=== PATIENT | male | born 1995 | race Two or more races ===

== ENCOUNTER 2024-09-13 20:50 | Inpatient (IN) | payer MEDICAID, OTHER ==
[~2024-09-13] VITALS: Ht 172.7 cm; Wt 94.5 kg
[2024-09-13] MEDS: CEFEPIME 2GM/50ML NS 50 ML IV ONE (01:10)
[2024-09-13] MEDS ORDERED: VANCOMYCIN 1GM/250ML KIT 200 ML IV ONE (21:15)
--- NOTE | 2024-09-13 21:30 | ED.PDOC ---
Musculoskeletal HPI Comments 29-year-old male came to ER due to nonhealing wound, right great toe. Patient has history of type 2 diabetes, states for the past 2 days he has a nonhealing wound of the right great toe. Denies any history of trauma. Chief Complaint: Lower Extremity Time Seen by MD: 21:29 Reviewed Notes: Nurses Notes Allergies: Coded Allergies: NO KNOWN ALLERGIES (Unverified , 09/13/24) Information Source: Patient Mode of Arrival: Wheelchair Location: Right Extremity Location: Great Toe Timing: Days Prehospital treatment: None Severity: Moderate Able to Move Extremity: Yes Bear Weight: Limited Pain: Moderate Hand Dominance: Right Mechanism: Spontaneous Circumstances: Spontaneous Onset of Symptoms: Spontaneous Symptoms: Swelling, Pain Associated signs and symptoms: Foot pain (Right great toe) Past Medical History PAST MEDICAL HISTORY: DM Surgical History: Denies all surgeries Family History Family History: Reviewed,noncontributory to illness Social History Smoker: Non-Smoker Alcohol: Denies ETOH Use Drugs: Denies Drug Use Lives In: Home Constitutional: denies: chills, diaphoresis, fatigue, fever, malaise, sweats, weakness, others EENTM: denies: blurred vision, double vision, ear bleeding, ear discharge, ear drainage, ear pain, ear ringing, eye pain, eye redness, hearing loss, mouth pain, mouth swelling, nasal discharge, nose bleeding, nose congestion, nose pain, photophobia, tearing, throat pain, throat swelling, voice changes, others Respiratory: denies: cough, hemoptysis, orthopnea, SOB at rest, shortness of breath, SOB with excertion, stridor, wheezing, others Cardiovascular: denies: chest pain, dizzy spells, diaphoresis, Dyspnea on exert ion, edema, irregular heart beat, left arm pain, lightheadedness, palpitations, PND, syncope, others Gastrointestinal: denies: abdomen distended, abdominal pain, blood streaked bowels, constipated, diarrhea, dysphagia, difficulty swallowing, hematemesis, melena, nausea, poor appetite, poor fluid intake, rectal bleeding, rectal pain, vomiting, others Genitourinary: denies: burning, dysuria, flank pain, frequency, hematuria, incontinence, penile discharge, penile sore, pain, testicle pain, testicle swelling, urgency, others Neurological: denies: dizziness, fainting, headache, left sided numbness, left sided weakness, numbness, paresthesia, pre-existing deficit, right sided numbness, right sided weakness, seizure, speech problems, tingling, tremors, weakness, others Musculoskeletal: denies: back pain, gout, joint pain, joint swelling, muscle pain, muscle stiffness, neck pain, others Integumetry: reports: wounds (Nonhealing wound great toe, right); denies: bruises, change in color, change in hair/nails, dryness, laceration, lesions, lumps, rash, others Allergic/Immunocompromised: denies: Difficulty Healing, Frequent Infections, Hives, Itching, others Hematologic/Lymphatic: denies: anemia, blood clots, easy bleeding, easy bruising, swollen glands, others Endocrine: denies: excessive hunger, excessive sweating, excessive thirst, excessive urination, flushing, intolerance to cold, intolerance to heat, unexplained weight gain, unexplained weight loss, others Psychiatric: denies: anxiety, bipolar disorder, depression, hopeless, panic disorder, schizophrenia, sleepless, suicidal, others Physical Exam General Appearance: No Apparent Distress, Normal HEENT: Normal ENT Inspection, Pharynx Normal, TMs Normal Neck: Full Range of Motion, Non-Tender, Normal, Normal Inspection Respiratory: Chest Non-Tender, Lungs Clear, No Accessory Muscle Use, No Respiratory Distress, Normal Breath Sounds Cardiovascular: No Edema, No JVD, No Murmur, No Gallop, Normal Peripheral Pulses, Regular Rate/Rhythm Breast Exam: Deferred Gastrointestinal: No Organomegaly, Non Tender, No Pulsatile Mass, Normal Bowel Sounds, Soft Genitalia: Deferred Pelvic: Deferred Rectal: Deferred Extremities: No calf tenderness, Normal capillary refill, Normal range of motion, Non-tender, No pedal edema, Other (Nonhealing wound right great toe) Musculoskeletal : Apperance: Normal Neurologic: Alert, art history professor II-XII nml as Tested, No Motor Deficits, Normal Affect, Normal Mood, No Sensory Deficits Cerebellar Function: Normal Reflexes: Normal Skin: Dry, Normal Color, Warm Lymphatic: No Adenopathy Was a procedure done? Was a procedure done?: No Differential Diagnosis EXT Differential Diagnosis: Cellulitis, Septic, Other (Diabetic foot) X-Ray, Labs, Meds, VS Vital Signs Date Time Temp Pulse Resp B/P (MAP) Pulse Ox O2 Delivery O2 Flow Rate FiO2 09/13/24 21:05 99.7 118 18 138/78 (98) 97 Lab Test 09/13/24 21:32 Range/Units White Blood Count 13.7 H 4.4-10.8 10^3/uL Red Blood Count 5.28 4.5-5.90 10^6/uL Hemoglobin 14.4 13.5-17.5 g/dL Hematocrit 42.4 41.0-53.0 % Mean Corpuscular Volume 80.3 80.0-100.0 fL Mean Corpuscular Hemoglobin 27.2 L 28.0-32.0 pg Mean Corpuscular Hemoglobin Concent 33.8 32.0-36.0 g/dL Red Cell Distribution Width 13.8 11.8-14.3 % Platelet Count 280 140-450 10^3/uL Mean Platelet Volume 8.8 6.9-10.8 fL Neutrophils (%) (Auto) 75.2 37.0-80.0 % Lymphocytes (%) (Auto) 14.8 10.0-50.0 % Monocytes (%) (Auto) 8.3 0.0-12.0 % Eosinophils (%) (Auto) 1.5 0.0-7.0 % Basophils (%) (Auto) 0.2 0.0-2.0 % Neutrophils # (Auto) 10.3 H 1.6-8.6 10 ^3/uL Lymphocytes # (Auto) 2.0 0.4-5.4 10 ^3/uL Monocytes # (Auto) 1.1 0-1.3 10 ^3/uL Eosinophils # (Auto) 0.2 0-0.8 10 ^3/uL Basophils # (Auto) 0 0-0.2 10 ^3/uL Nucleated Red Blood Cells 0.0 % Sodium Level 133 L 136-145 mmol/L Potassium Level 3.9 3.5-5.1 mmol/L Chloride Level 96 L 98-107 mmol/L Carbon Dioxide Level 29 20-31 mmol/L Anion Gap 8 5-15 Blood Urea Nitrogen 6 L 9-23 mg/dL Creatinine 0.66 L 0.700-1.30 mg/dL Glomerular Filtration Rate Calc 130 >90 mL/min BUN/Creatinine Ratio 9.1 L 10.0-20.0 Serum Glucose 248 H 74-106 mg/dL Lactic Acid Level 1.6 0.4-2.0 mmol/L Calcium Level 9.7 8.7-10.4 mg/dL PROCEDURE(s): RFOOT - R FOOT 3 VIEW XRAY REASON: right 1st toe pain ORDER NUMBER(s): [id number], ACCESSION NUMBER(s): [id number] EXAMINATIONS: 3 views of the right foot CLINICAL HISTORY: right 1st toe pain COMPARISON: At the time of review, no prior studies are available for comparison. Findings and impression: Soft tissue gas within the plantar tissues of the 1st distal phalanx. Necrotizing infection not excluded. No obvious bony destructive changes are evident on the provided views. Time of 1ST Reevaluation: 21:24 Reevaluation 1ST: Unchanged Patient Education/Counseling: Diagnosis, Treatment Family Education/Counseling: No Family Present Departure 1 Departure Time of Disposition: 22:41 (Patient with necrotic infection of his toe. Patient is not septic. We will empirically cover patient with antibiotics with the patient for further workup) Impression: Primary Impression: Cellulitis Qualified Codes: L03.031 - Cellulitis of right toe Disposition: 09 ADMITTED INPATIENT Admit to: Med Surg Condition: Serious Critical Care Note Critical Care Time?: Yes Critical care comment: Concerning for gangrene Authorized and Performed by: Ricarda Mathew MD Total critical care time: Approximately 38 minutes Due to a high probability of clinically significant, life threatening deterioration, the patient required my highest level of preparedness to intervene emergently and I personally spent this critical care time directly and personally managing the patient. This critical care time included obtaining a history; examining the patient; pulse oximetry; ordering and review of studies; arranging urgent treatment with development of a management plan; evaluation of patient's response to treatment; frequent reassessment; and, discussions with other providers. This critical care time was performed to assess and manage the high probability of imminent, life-threatening deterioration that could result in multi-organ failure. It was exclusive of separately billable procedures and treating other patients and teaching time. Please see my other sections and the rest of the note for further information on patient assessment and treatment. Stability Stability form required: No Heart Score Heart Score: Heart Score Response (Comments) Value History N/A 0 EKG N/A 0 Age N/A 0 Risk Factors N/A 0 Troponin N/A 0 Total 0 I personally scribed for RICARDA MATHEW MD ([facility]) on 09/13/24 at 21:30. Electronically submitted by Andrea Thomson ([facility]). I personally scribed for RICARDA MATHEW MD ([facility]) on 09/13/24 at 21:40. Electronically submitted by Andrea Thomson ([facility]). RICARDA MATHEW MD Sep 13, 2024 21:30
--- NOTE | 2024-09-13 21:33 | DVH ---
EXAMINATIONS: 3 views of the right foot CLINICAL HISTORY: right 1st toe pain COMPARISON: At the time of review, no prior studies are available for comparison. Findings and impression: Soft tissue gas within the plantar tissues of the 1st distal phalanx. Necrotizing infection not exclu ded. No obvious bony destructive changes are evident on the provided views.
[2024-09-13 21:56] LABS: Basophils # (auto) 0 10 ^3/uL (0-0.2); Basophils % (auto) 0.2 % (0.0-2.0); Eosinophils # (auto) 0.2 10 ^3/uL (0-0.8); Eosinophils % (auto) 1.5 % (0.0-7.0); Hematocrit 42.4 % (41.0-53.0); Hemoglobin 14.4 g/dL (13.5-17.5); Lymphocytes % (auto) 14.8 % (10.0-50.0); Mean Corpuscular Hemoglobin 27.2 pg (28.0-32.0); Mean Corpuscular Hgb Conc. 33.8 g/dL (32.0-36.0); Mean Corpuscular Volume 80.3 fL (80.0-100.0); Monocytes # (auto) 1.1 10 ^3/uL (0-1.3); Monocytes % (auto) 8.3 % (0.0-12.0); Neutrophils # (auto) 10.3 10 ^3/uL (1.6-8.6); Neutrophils % (auto) 75.2 % (37.0-80.0); Platelet Count (auto) 280 10^3/uL (140-450); Red Blood Cells 5.28 10^6/uL (4.5-5.90); Red Cell Distribution Width 13.8 % (11.8-14.3); White Blood Cell 13.7 10^3/uL (4.4-10.8)
[2024-09-13 22:05] LABS: Potassium 3.9 mmol/L (3.5-5.1)
[2024-09-13 22:06] LABS: Anion Gap 8 (5-15); Carbon Dioxide 29 mmol/L (20-31)
[2024-09-13 22:07] LABS: Calcium 9.7 mg/dL (8.7-10.4)
[2024-09-13 22:11] LABS: BUN/Creatinine Ratio 9.1 (10.0-20.0)
[2024-09-13 22:15] LABS: Chloride 96 mmol/L (98-107); Sodium 133 mmol/L (136-145)
[2024-09-13 22:16] LABS: Blood Urea Nitrogen 6 mg/dL (9-23); Glucose 248 mg/dL (74-106)
[2024-09-13] MEDS ORDERED: DEXTROSE (50%) 50ML SYRG IV PRN (23:15)
[2024-09-13] MEDS ORDERED: VANCOMYCIN PER PHARMACY 0 MG IV SCH (23:15)
[2024-09-13] MEDS ORDERED: DOCUSATE SOD 100 MG CAP PO PRN (23:15)
[2024-09-13] MEDS ORDERED: NITROGLYCERIN 0.4 MG SL TAB SL PRN (23:15)
[2024-09-13] MEDS ORDERED: HYDROcodone-ACET 5/325MG TAB PO PRN (23:15)
[2024-09-13] MEDS ORDERED: ACETAMINOPHEN 325 MG TAB PO PRN (23:15)
[2024-09-13] MEDS ORDERED: MORPHINE SULFATE INJ 2 MG/ml SYRG IV PRN (23:15)
[2024-09-13] MEDS: SODIUM CHLORIDE 0.9% 1,000 ML IV ONE (23:40)
[2024-09-13] MEDS: ACETAMINOPHEN 325 MG TAB PO ONE (23:40)
[2024-09-13] MEDS: VANCOMYCIN 1GM/250mL NS or D5W KIT IV SCH (23:48)
[2024-09-13] MEDS: ONDANSETRON HCL 4 MG/2 ML VIAL IV PRN (23:49)
[2024-09-13] MEDS: MORPHINE SULFATE INJ 2 MG/ml SYRG IV PRN (23:50)
[2024-09-14] VITALS (8 sets, daily range): BP systolic 107–126; BP diastolic 65–78; PULSE 89–103; RESP 16–20; TEMP 98–99; O2SAT 96–100
[2024-09-14] MEDS: ACCU-CHEK COMFORT CURVE STRIP VI SCH (01:00)
[2024-09-14] MEDS: InsuLIN REG 1unit/0.01ml Soln (100units/ml) SC SCH (01:06)
[2024-09-14] MEDS ORDERED: METF-372 PO (01:26)
[2024-09-14] MEDS: SODIUM CHLORIDE 0.9% 1,000 ML IV SCH (01:34)
--- NOTE | 2024-09-14 02:43 | DVHHP2 ---
[facility] MANAGER 09/14/24 0243: History of Present Illness Reason for Visit: Right great toe Diabetic wound History of Present Illness 29-year-old male with past medical history of uncontrolled DM presents with complaints Swelling and Pain to the right great toe. Patient was first diagnosed with a diabetic wound On May 12, 2024 at [facility] ER. Patient was prescribed antibiotics (Doxycycline and Mupirocin ointment) at that time. Patient Confirmed he has tried to seek help for the wound. Also states it has just gotten worse. At this time there are no complaints of fevers, chills, shortness of breath, chest pain, abdominal pain, nausea, vomiting, Additional wounds. Endocrine: Diabetes Smoke: No ALCOHOL: none Drugs: None Lives: with Family Review of Systems Constitutional: No: Fever, Chills, Sweats, Weakness, Malaise, Other Eyes: No: Pain, Vision change, Conjunctivae inflammation, Eyelid inflammation, Other, Redness ENT: No: Ear pain, Ear discharge, Nose pain, Nose discharge, Nose congestion, Mouth pain, Mouth swelling, Throat pain, Throat swelling, Other Respiratory: No: Cough, Dry, Shortness of breath, SOB with excertion, Wheezing, Hemoptysis, Pleuritic Pain, Sputum, Wheezing, Other Cardiovascular: No: Chest Pain, Palpitations, Orthopnea, Paroxysmal Noc. Dyspnea, Edema, Lt Headedness, Other Gastrointestinal: No: Nausea, Vomiting, Abdominal Pain, Diarrhea, Constipation, Melena, Hematochezia, Other Genitourinary: No Dysuria, No Frequency, No Incontinence, No Hematuria, No Retention, No Other Musculoskeletal: foot pain Skin: Other (blackened skin to right great toe); No: Rash, Lesions, Jaundice, Bruising Neurological: No: Weakness, Numbness, Incoordination, Change in speech, Confusion, Seizures, Other Allergies: Coded Allergies: NO KNOWN ALLERGIES (Unverified , 09/13/24) Medications Current Medications Medications Dose Ordered Sig/Sammi Route Start Time Stop Time Status Last Admin Dose Admin Sodium Chloride 1,000 ml @ 100 mls/hr Q10H IV 09/13/24 23:15 09/14/24 01:34 100 MLS/HR Docusate Sodium 100 mg BIDPRN PRN PO 09/13/24 23:15 Acetaminophen 650 mg Q6HP PRN PO 09/13/24 23:15 Acetaminophen/ Hydrocodone Bitart 1 tab Q6HPRN PRN PO 09/13/24 23:15 Ondansetron HCl 4 mg Q4HP PRN IV 09/13/24 23:15 09/13/24 23:49 4 MG Morphine Sulfate 2 mg Q4HPRN PRN IV 09/13/24 23:15 09/13/24 23:50 2 MG Nitroglycerin 0.4 mg Q5MINP PRN SL 09/13/24 23:15 Morphine Sulfate 2 mg Q30M PRN IV 09/13/24 23:15 Diagnostic Test (Pha) 1 strip Q6HR 09/14/24 00:00 09/14/24 01:00 1 STRIP Insulin Human Regular Q6HR SC 09/14/24 00:00 09/14/24 01:06 6 UNITS Dextrose 50 ml UD PRN IV 09/13/24 23:15 Vancomycin HCl 0 ml @ 0 mls/hr UD IV 09/13/24 23:15 UNV Piperacillin Sod/ Tazobactam Sod 100 ml @ 100 mls/hr TID IV 09/14/24 06:00 Exam Vital Signs Vital Signs Date Time Temp Pulse Resp B/P (MAP) Pulse Ox O2 Delivery O2 Flow Rate FiO2 09/14/24 01:16 98.3 98 20 126/73 (90) 96 98.3 09/13/24 23:45 Room Air* 0 21 General Appearance: Alert, Oriented X3, Cooperative, moderate distress HEENT: Atraumatic, PERRLA, EOMI Respiratory: Clear to auscultation, Normal air movement Cardiovascular: Normal S1, Normal S2, Other (Sinus tachycardia) Abdominal: Normal bowel sounds, Soft, No tenderness Extremities: No clubbing, No cyanosis, Normal pulses, Other (Right great toe, Malodorous, Distal and lesion with necrotic tissue. darkened tissue to top of toe. Dark discoloration to toenail) Skin: No significant lesion (Right great toe, Malodorous, Distal and lesion with necrotic tissue. darkened tissue to top of toe. Dark discoloration to toenail) Neuro: Normal speech, Strength at 5/5 X4 ext, Normal tone, Sensation intact, Cranial nerves 3-12 NL Psych/Mental Status: Mental status NL, Mood NL Labs/Xrays Labs Test 09/14/24 01:00 09/13/24 21:32 Range/Units POC Glucose 279 H 70-106 mg/dl White Blood Count 13.7 H 4.4-10.8 10^3/uL Red Blood Count 5.28 4.5-5.90 10^6/uL Hemoglobin 14.4 13.5-17.5 g/dL Hematocrit 42.4 41.0-53.0 % Mean Corpuscular Volume 80.3 80.0-100.0 fL Mean Corpuscular Hemoglobin 27.2 L 28.0-32.0 pg Mean Corpuscular Hemoglobin Concent 33.8 32.0-36.0 g/dL Red Cell Distribution Width 13.8 11.8-14.3 % Platelet Count 280 140-450 10^3/uL Mean Platelet Volume 8.8 6.9-10.8 fL Neutrophils (%) (Auto) 75.2 37.0-80.0 % Lymphocytes (%) (Auto) 14.8 10.0-50.0 % Monocytes (%) (Auto) 8.3 0.0-12.0 % Eosinophils (%) (Auto) 1.5 0.0-7.0 % Basophils (%) (Auto) 0.2 0.0-2.0 % Neutrophils # (Auto) 10.3 H 1.6-8.6 10 ^3/uL Lymphocytes # (Auto) 2.0 0.4-5.4 10 ^3/uL Monocytes # (Auto) 1.1 0-1.3 10 ^3/uL Eosinophils # (Auto) 0.2 0-0.8 10 ^3/uL Basophils # (Auto) 0 0-0.2 10 ^3/uL Nucleated Red Blood Cells 0.0 % Sodium Level 133 L 136-145 mmol/L Potassium Level 3.9 3.5-5.1 mmol/L Chloride Level 96 L 98-107 mmol/L Carbon Dioxide Level 29 20-31 mmol/L Anion Gap 8 5-15 Blood Urea Nitrogen 6 L 9-23 mg/dL Creatinine 0.66 L 0.700-1.30 mg/dL Glomerular Filtration Rate Calc 130 >90 mL/min BUN/Creatinine Ratio 9.1 L 10.0-20.0 Serum Glucose 248 H 74-106 mg/dL Lactic Acid Level 1.6 0.4-2.0 mmol/L Calcium Level 9.7 8.7-10.4 mg/dL Assessment/Plan Assessment/Plan Diabetic wound right great toe Uncontrolled DM with hyperglycemia Plan Admit telemetry Podiatry consult per emergency department Infectious Disease consult. Wound culture pending. Blood cultures pending. Broad Spectrum IV ABX IVF NPO diet Blood glucose checks every six hours with regular insulin sliding scale coverage. GI ppx pepcid / DVT ppx lovenox Plan discussed with: Patient My Orders Orders - MARIE ORR NP Procedure Category Date Status Time Code Status CODE 09/13/24 Transmitted 23:06 Vital Signs ALEXIS 09/13/24 In Process 23:06 Review Orders With ALEXIS 09/13/24 In Process Adm. 23:06 Encourage Activity As ALEXIS 09/13/24 In Process Tolerate 23:06 Npo (Nothing By DIET 09/14/24 Transmitted Mouth) Diet Breakfast Sodium Chloride 0.9% PHA 09/13/24 In Process 23:15 Oxygen By Face Mask RT 09/13/24 Transmitted 23:06 Docusate Sodium PHA 09/13/24 In Process Capsule (Colace 23:15 Acetaminophen Tablet PHA 09/13/24 In Process (Tylenol Tablet) 23:15 Notify Of Changes ALEXIS 09/13/24 In Process From Base 23:06 Advance Directive ALEXIS 09/13/24 In Process 23:06 Basic Metabolic Panel LAB 09/14/24 Logged 05:00 Basic Metabolic Panel LAB 09/15/24 Verified 05:00 Basic Metabolic Panel LAB 09/16/24 Verified 05:00 Basic Metabolic Panel LAB 09/17/24 Verified 05:00 Basic Metabolic Panel LAB 09/18/24 Verified 05:00 Complete Blood Count LAB 09/14/24 Logged 05:00 Complete Blood Count LAB 09/15/24 Verified 05:00 Complete Blood Count LAB 09/16/24 Verified 05:00 Complete Blood Count LAB 09/17/24 Verified 05:00 Complete Blood Count LAB 09/18/24 Verified 05:00 Patient Condition ORDERS 09/13/24 Transmitted 23:06 Allergies ALEXIS 09/13/24 In Process 23:06 Hydrocodone-Acet PHA 09/13/24 In Process 5/325mg Tab ([place] 23:15 Ondansetron Hcl PHA 09/13/24 In Process (Zofran) 23:15 Morphine Sulfate PHA 09/13/24 In Process Injection 23:15 Sequential ALEXIS 09/13/24 In Process Compression Device Nitroglycerin PHA 09/13/24 In Process Sublingual (Ntrostat 23:15 Morphine Sulfate PHA 09/13/24 In Process Injection 23:15 Stat Ekg For Chest ALEXIS 09/13/24 In Process Pain 23:06 Notify Of Changes ALEXIS 09/13/24 In Process From Base 23:06 Pest Control Applicator For ALEXIS 09/13/24 In Process 24 Hours 23:06 Emergency Dysrhythmia ALEXIS 09/13/24 In Process Protocol 23:06 Rhythm Strips Once ALEXIS 09/13/24 In Process Every Shift 23:06 Oxygen By Nasal RT 09/13/24 Transmitted Cannula 23:06 Glucose Blood PHA 09/14/24 In Process (Accu-Chek Comfort 00:00 Insulin R (Human) PHA 09/14/24 In Process (Insulin R) 00:00 Dextrose 50% Syringe PHA 09/13/24 In Process 23:15 * Infectious [place]- CONS 09/13/24 Transmitted K Deshawn 23:06 Vancomycin Per PHA 09/13/24 Pending Pharmacy 23:15 Piperacillin-Tazob PHA 09/14/24 In Process 3.375gm (Zosyn 3.375g 06:00 * Wound Consult CONS 09/13/24 Transmitted Mri R Foot Wo Contrast MRI 09/13/24 Logged 23:06 Admit ADMIT 09/13/24 Transmitted 23:55 Date of Service: Sep 14, 2024 Billing Provider: YRIS COREAS MD Common Visit Codes: NOT BILLABLE YRIS COREAS MD 09/14/24 1408: Review of Systems Allergies: Coded Allergies: NO KNOWN ALLERGIES (Unverified , 09/13/24) Assessment/Plan Assessment/Plan THE PATIENT'S CHART IS REVIEWED AND DISCUSSED WITH THE NURSE PRACTITIONER. THE PATIENT IS SEEN EVALUATED AND ADMITTED BY NURSE PRACTITIONER THIS MORNING. I agree with his evaluation, documentation, assessment and care plan as outlined. Plan discussed with: MARIE Cameron NP Sep 14, 2024 02:43 YRSI COREAS MD Sep 14, 2024 14:08
[2024-09-14] MEDS: PIPERACILLIN-TAZOB 3.375GM 100 ML IV SCH (05:02)
[2024-09-14] MEDS ORDERED: PIPERACILLIN-TAZOB 3.375GM 100 ML IV SCH (06:00)
--- NOTE | 2024-09-14 08:24 | DVH ---
CLINICAL INDICATION: 29 years old, Male; infection right great toe. COMPARISON: Radiographs of the right foot dated 09/13/2024 TECHNIQUE: Multiplanar, multisequence MRI of the right foot was performed without intravenous contras t. Contrast: None. INTERPRETATION: Bones: No evidence of acute fracture. There is T1 hypointensity with T2 hyperintensity in the 1st di stal phalanx, consistent with osteomyelitis. There is also edema in the distal aspect of the 1st prox imal phalanx with faint T1 hypointensity. Flexion deformity of the interphalangeal joint of the great toe. Joint spaces are otherwise maintained. Soft tissues: There is soft tissue swelling in the distal great toe. No obvious fluid collection. No high-grade tendon or ligament injury. Dorsal forefoot soft tissue swelling is also noted. There is edema within the intrinsic muscles of the forefoot. IMPRESSION: 1. Osteomyelitis in the 1st distal phalanx. Possible osteomyelitis in the distal aspect of the 1st p roximal phalanx. 2. Cellulitis particularly about the great toe and in the dorsum of the foot. 3. Edema in the intrinsic muscles of the foot may reflect myositis or denervation.
[2024-09-14 10:51] LABS: Chloride 100 mmol/L (98-107); Potassium 3.6 mmol/L (3.5-5.1); Sodium 136 mmol/L (136-145)
[2024-09-14 10:52] LABS: Anion Gap 9 (5-15); Calcium 9.2 mg/dL (8.7-10.4); Carbon Dioxide 27 mmol/L (20-31)
[2024-09-14 10:57] LABS: BUN/Creatinine Ratio 11.8 (10.0-20.0)
[2024-09-14 10:59] LABS: Blood Urea Nitrogen 6 mg/dL (9-23); Glucose 157 mg/dL (74-106)
[2024-09-14 11:17] LABS: Basophils # (auto) 0 10 ^3/uL (0-0.2); Basophils % (auto) 0.2 % (0.0-2.0); Eosinophils # (auto) 0.2 10 ^3/uL (0-0.8); Hematocrit 38.4 % (41.0-53.0); Hemoglobin 12.7 g/dL (13.5-17.5); Lymphocytes # (auto) 2.6 10 ^3/uL (0.4-5.4); Lymphocytes % (auto) 22.1 % (10.0-50.0); Mean Corpuscular Hemoglobin 26.6 pg (28.0-32.0); Mean Corpuscular Hgb Conc. 33.1 g/dL (32.0-36.0); Mean Corpuscular Volume 80.2 fL (80.0-100.0); Monocytes # (auto) 1.1 10 ^3/uL (0-1.3); Monocytes % (auto) 9.6 % (0.0-12.0); Neutrophils # (auto) 7.7 10 ^3/uL (1.6-8.6); Neutrophils % (auto) 66.1 % (37.0-80.0); Nucleated Red Blood Cells % 0.1 %; Platelet Count (auto) 242 10^3/uL (140-450); Red Blood Cells 4.79 10^6/uL (4.5-5.90); Red Cell Distribution Width 13.7 % (11.8-14.3); White Blood Cell 11.6 10^3/uL (4.4-10.8)
[2024-09-14 12:12] LABS: INR 1.02 (0.9-1.15); Partial Thromboplastin Time 29.3 SEC (24.5-34.5); Prothrombin Time 10.8 sec (9.3-11.8)
[2024-09-14] MEDS ORDERED: ONDANSETRON HCL 4 MG/2 ML VIAL ONE (12:42)
[2024-09-14] MEDS ORDERED: KETAMINE 50mg/ML 1ml syringe ONE (12:42)
[2024-09-14] MEDS ORDERED: SODIUM CHLORIDE LOCK 10 ML ONE (12:42)
[2024-09-14] MEDS ORDERED: fentaNYL CITRATE 100 MCG/2 ML VL ONE (12:42)
[2024-09-14] MEDS ORDERED: PROPOFOL 10 MG/ML 20 ML IV ONE (12:42)
[2024-09-14] MEDS ORDERED: MIDAZOLAM HCL 2MG/2ML 2ml VIAL (1mg/ml) ONE (12:42)
[2024-09-14] MEDS ORDERED: LIDOCAINE 1% INJ PF 5ML AMP ONE (12:42)
[2024-09-14] MEDS: ACCU-CHEK COMFORT CURVE STRIP VI ONE (13:00)
[2024-09-14] MEDS ORDERED: HYDROmorphone HCL 2 MG/ML VL/or syr IV PRN ×2 (13:00)
[2024-09-14] MEDS ORDERED: MORPHINE SULFATE INJ 2 MG/ml SYRG IV PRN ×2 (13:00)
[2024-09-14] MEDS: METOCLOPRAMIDE HCL 5MG/ml INJ 2ml VIAL IV ONE (13:00)
[2024-09-14] MEDS: KETOROLAC TROMETH 30 MG/ML 1ML VIAL IV ONE (13:00)
[2024-09-14] MEDS: BUPIVACAINE 0.5% P/F INJ 10 ML VIAL ONE (13:07)
--- NOTE | 2024-09-14 13:20 | DVHINCON2 ---
Date Seen: Sep 14, 2024 Reason for Consultation Right hallux wound History of Present Illness 29-year-old male with past medical history of uncontrolled DM presents with complaints Swelling and Pain to the right great toe. Patient was first diagnosed with a diabetic wound On May 12, 2024 at [facility] ER. Patient was prescribed antibiotics (Doxycycline and Mupirocin ointment) at that time. Patient Confirmed he has tried to seek help for the wound. Also states it has just gotten worse. At this time there are no complaints of fevers, chills, shortness of breath, chest pain, abdominal pain, nausea, vomiting, Additional wounds. Past Medical History See H&P Past Surgical History See H&P Family History: Diabetes mellitus G8 MOTHER G8 FATHER, Allergies: Coded Allergies: NO KNOWN ALLERGIES (Unverified , 09/13/24) Home Meds Reported Medications Metformin Hydrochloride (Metformin Hcl) 1,000 Mg Tab, 500 MG PO BID 09/14/24 Current Medications Current Medications Medications (Trade) Dose Ordered Sig/Sammi Route PRN Reason Start Time Stop Time Status Last Admin Sodium Chloride 1,000 ml @ 100 mls/hr Q10H IV 09/13/24 23:15 09/14/24 01:34 Docusate Sodium (Colace Capsule) 100 mg BIDPRN PRN PO FOR CONSTIPATION 09/13/24 23:15 Acetaminophen (Tylenol Tablet) 650 mg Q6HP PRN PO PAIN SCALE 1-3 OR TEMP>100.4 09/13/24 23:15 Acetaminophen/ Hydrocodone Bitart ([place] 5/325MG Tab) 1 tab Q6HPRN PRN PO MODERATE PAIN (4-6 PAIN SCALE) 09/13/24 23:15 Ondansetron HCl (Zofran) 4 mg Q4HP PRN IV NAUSEA / VOMITING 09/13/24 23:15 09/13/24 23:49 Morphine Sulfate 2 mg Q4HPRN PRN IV SEVERE PAIN (7-10 PAIN SCALE) 09/13/24 23:15 09/13/24 23:50 Nitroglycerin (Ntrostat Sublingual) 0.4 mg Q5MINP PRN SL FOR CHEST PAIN 09/13/24 23:15 Morphine Sulfate 2 mg Q30M PRN IV FOR CHEST PAIN 09/13/24 23:15 Diagnostic Test (Pha) (Accu-Chek Comfort Curve T) 1 strip Q6HR 09/14/24 00:00 09/14/24 12:00 Insulin Human Regular (InsuLIN R) Q6HR SC 09/14/24 00:00 09/14/24 05:44 Dextrose 50 ml UD PRN IV Blood Sugar LESS THAN 60 09/13/24 23:15 Vancomycin HCl 0 ml @ 0 mls/hr UD IV 09/13/24 23:15 Piperacillin Sod/ Tazobactam Sod 100 ml @ 100 mls/hr TID IV 09/14/24 06:00 09/14/24 03:58 DC Vancomycin HCl 250 ml @ 250 mls/hr Q1H IV 09/13/24 23:30 09/14/24 01:29 DC 09/14/24 01:46 Piperacillin Sod/ Tazobactam Sod 100 ml @ 100 mls/hr TID IV 09/14/24 05:00 09/14/24 05:02 Vancomycin HCl 250 ml @ 200 mls/hr Q8H IV 09/14/24 16:00 Vital Signs Vital Signs Date Time Temp Pulse Resp B/P (MAP) Pulse Ox O2 Delivery O2 Flow Rate FiO2 09/14/24 09:00 98.4 89 18 107/65 (79) 96 98.4 09/14/24 01:16 Room Air* 0 21 Physical Exam DERMATOLOGIC EXAM: - Skin is dry and cool to the touch dry bilaterally. - Nails 1-5 of the bilateral foot are thickened, discolored, dystrophic, and tender to palpate with subungual debris - Hair loss noted to bilateral feet Wound #1: Location: Right hallux Measurements: Length cm x width cm x depth cm. Wound margins: Hyperkeratotic. Wound base: Full thickness. General Appearance: Necrotic Probes to Bone: Yes Purulent drainage: Yes Serous drainage: No Erythema: Toe VASCULAR EXAM: - DP and PT pulses are palpable bilaterally. - CERTIFIED WELLNESS PROGRAM MANAGER is brisk to all digits. - Feet are cool to touch compared to lower legs bilaterally. NEUROLOGIC EXAM: - Normal light touch sensation to the superficial peroneal, deep peroneal, sural, saphenous, and tibial nerve branches. - Protective sensation is diminished as tested with a 5.07 10g [place] bilaterally. MUSCULOSKELETAL EXAM: - No gross deformities - Muscle strength is 5/5 and active motion is pain-free and symmetrical bilaterally - No pain or crepitation with passive range of motion bilaterally to all major pedal joints Labs/Diagnostic Data Labs Test 09/14/24 11:31 09/14/24 10:24 09/13/24 21:32 Range/Units POC Glucose 151 H 70-106 mg/dl White Blood Count 11.6 H 4.4-10.8 10^3/uL Red Blood Count 4.79 4.5-5.90 10^6/uL Hemoglobin 12.7 L 13.5-17.5 g/dL Hematocrit 38.4 L 41.0-53.0 % Mean Corpuscular Volume 80.2 80.0-100.0 fL Mean Corpuscular Hemoglobin 26.6 L 28.0-32.0 pg Mean Corpuscular Hemoglobin Concent 33.1 32.0-36.0 g/dL Red Cell Distribution Width 13.7 11.8-14.3 % Platelet Count 242 140-450 10^3/uL Mean Platelet Volume 8.8 6.9-10.8 fL Neutrophils (%) (Auto) 66.1 37.0-80.0 % Lymphocytes (%) (Auto) 22.1 10.0-50.0 % Monocytes (%) (Auto) 9.6 0.0-12.0 % Eosinophils (%) (Auto) 2.0 0.0-7.0 % Basophils (%) (Auto) 0.2 0.0-2.0 % Neutrophils # (Auto) 7.7 1.6-8.6 10 ^3/uL Lymphocytes # (Auto) 2.6 0.4-5.4 10 ^3/uL Monocytes # (Auto) 1.1 0-1.3 10 ^3/uL Eosinophils # (Auto) 0.2 0-0.8 10 ^3/uL Basophils # (Auto) 0 0-0.2 10 ^3/uL Nucleated Red Blood Cells 0.1 % Prothrombin Time 10.8 9.3-11.8 sec Prothrombin Time INR 1.02 0.9-1.15 Activated Partial Thromboplast Time 29.3 24.5-34.5 SEC Sodium Level 136 136-145 mmol/L Potassium Level 3.6 3.5-5.1 mmol/L Chloride Level 100 98-107 mmol/L Carbon Dioxide Level 27 20-31 mmol/L Anion Gap 9 5-15 Blood Urea Nitrogen 6 L 9-23 mg/dL Creatinine 0.51 L 0.700-1.30 mg/dL Glomerular Filtration Rate Calc 141 >90 mL/min BUN/Creatinine Ratio 11.8 10.0-20.0 Serum Glucose 157 H 74-106 mg/dL Calcium Level 9.2 8.7-10.4 mg/dL Lactic Acid Level 1.6 0.4-2.0 mmol/L Problems(with codes): (1) Necrotizing fasciitis (2) Osteomyelitis of toe (3) Cellulitis and abscess of foot Plan/Recommendation ASSESSMENT: Patient is a 29 year old seen on the floor for a worsening ulcer PLAN: - The patients chart was reviewed, clinical findings were discussed with the patient, the etiologies of the conditions were discussed in detail, and a treatment plan was agreed to at this time, with both oral and written instructions provided. - reviewed advanced imaging - discussed plan is to perform an incision and drainage - patient has been NPO since midnight - take him to the OR today - we will get cultures in the OR - can weightbear as tolerated in postoperative shoe All questions were answered and concerns addressed to the patient's satisfaction. The patient was given the phone number to the clinic and was told how to make contact with the clinic should any concerns or questions arise. Patient understands that if any questions or concerns arise prior to the next appointment, we should be contacted immediately. FOLLOW-UP: Continue to follow while inpatient Plan discussed with: Patient Date of Service: Sep 14, 2024 Billing Provider: GEORGES HAHN DPM Common Visit Codes: CONSULT ONLY Consultation Codes: [id number] CONSULT <80MIN GEORGES HAHN DPM Sep 14, 2024 13:19
--- NOTE | 2024-09-14 13:23 | DVHOP2 ---
Operative Report - 2 Report Details Date: 09/14/24 Preop Diagnosis: 1. Right hallux osteomyelitis 2. Right hallux gas gangrene 3. Right hallux abscess 4. Right foot cellulitis Postop Diagnosis: Same as preop Surgeon: Georges Hahn MD Anesthesiologist: See anesthesia Anesthesia: Mac Consent: The patient was informed of the risks and benefits of the procedure. These include but are not limited to complications of anesthesia, postoperative infection, incomplete relief of symptoms, recurrence of symptoms, damage to blood vessels, nerves and tendons, deep venous thrombosis, pulmonary embolism and possible need for repeat surgery in the future. Complications: None Estimated Blood Loss: Minimal Fluids: See anesthesia Findings: Consistent with the diagnosis Indications for Surgery: Worsening right foot ulcer Name of Procedure Performed 1. Right foot I&D to bone (59221) 2. Right hallux distal phalanx bone biopsy () Procedure Details Procedure Details: PRE-PROCEDURE INFORMATION: In the pre-op holding area, the extremity to be operated on was clearly marked and the patient verified correct laterality of the marking. The patient was transferred to the OR table and placed in a supine position. A timeout was performed in which identification of the correct patient, procedure, location, and materials was done. The right foot and leg were prepped and draped in normal sterile fashion. DESCRIPTION OF PROCEDURE: Attention was directed to the right where area of fluctuance was noted. An incision was made over this area and was deepened through blunt dissection. The incision was deepened to the level of abscess and bone. Care was taken to the dissection to avoid any neurovascular and tendinous structures. The incision was deepened to the bone, and the abscess appeared to be purulent fluid consistent with pus. The cortices of the bone was then removed with Mick an all necrotic tissue. After the abscess was drained, the a [place] was irrigated with 3 L normal saline using cysto tubing. Deep cultures were then obtained from the wound. The area was then inspected and any areas of tracking, especially along the tendons were also drained. The wound was packed with Betadine-soaked gauze and we will need to be closed at a later date. POSTOPERATIVE INFORMATION: The patient tolerated the above noted procedure and anesthesia well and was transferred to the PACU with vital signs stable, and vascular status intact with capillary refill intact to all digits. Patient will return to the floor. Deep cultures were taken. Bone biopsy was taken. Patient will return to the OR on Tuesday for subsequent procedure with possible closure depending on how well the toe responds over the weekend. Specimen: Right hallux distal phalanx Condition Good Disposition Still a Patient GEORGES HAHN DPM Sep 14, 2024 13:23
[2024-09-14] MEDS: ceFAZolin 2 GM/D5W100ml 100 ML IV ONE (13:56)
[2024-09-14] MEDS: VANCOMYCIN 1.25GM/250ML 250 ML IV SCH (16:00)
--- NOTE | 2024-09-14 16:16 | DVHINCON2 ---
"Date of service: Sep 14, 2024 Family History: Diabetes mellitus G8 MOTHER G8 FATHER, Allergies: Coded Allergies: NO KNOWN ALLERGIES (Unverified , 09/13/24) Home Meds Reported Medications Metformin Hydrochloride (Metformin Hcl) 1,000 Mg Tab, 500 MG PO BID 09/14/24 Current Medications Current Medications Medications (Trade) Dose Ordered Sig/Sammi Route PRN Reason Start Time Stop Time Status Last Admin Sodium Chloride 1,000 ml @ 100 mls/hr Q10H IV 09/13/24 23:15 09/14/24 01:34 Docusate Sodium (Colace Capsule) 100 mg BIDPRN PRN PO FOR CONSTIPATION 09/13/24 23:15 Acetaminophen (Tylenol Tablet) 650 mg Q6HP PRN PO PAIN SCALE 1-3 OR TEMP>100.4 09/13/24 23:15 Acetaminophen/ Hydrocodone Bitart ([place] 5/325MG Tab) 1 tab Q6HPRN PRN PO MODERATE PAIN (4-6 PAIN SCALE) 09/13/24 23:15 Ondansetron HCl (Zofran) 4 mg Q4HP PRN IV NAUSEA / VOMITING 09/13/24 23:15 09/13/24 23:49 Morphine Sulfate 2 mg Q4HPRN PRN IV SEVERE PAIN (7-10 PAIN SCALE) 09/13/24 23:15 09/13/24 23:50 Nitroglycerin (Ntrostat Sublingual) 0.4 mg Q5MINP PRN SL FOR CHEST PAIN 09/13/24 23:15 Morphine Sulfate 2 mg Q30M PRN IV FOR CHEST PAIN 09/13/24 23:15 Diagnostic Test (Pha) (Accu-Chek Comfort Curve T) 1 strip Q6HR 09/14/24 00:00 09/14/24 12:00 Insulin Human Regular (InsuLIN R) Q6HR SC 09/14/24 00:00 09/14/24 05:44 Dextrose 50 ml UD PRN IV Blood Sugar LESS THAN 60 09/13/24 23:15 Vancomycin HCl 0 ml @ 0 mls/hr UD IV 09/13/24 23:15 Piperacillin Sod/ Tazobactam Sod 100 ml @ 100 mls/hr TID IV 09/14/24 06:00 09/14/24 03:58 DC Vancomycin HCl 250 ml @ 250 mls/hr Q1H IV 09/13/24 23:30 09/14/24 01:29 DC 09/14/24 01:46 Piperacillin Sod/ Tazobactam Sod 100 ml @ 100 mls/hr TID IV 09/14/24 05:00 09/14/24 05:02 Vancomycin HCl 250 ml @ 200 mls/hr Q8H IV 09/14/24 16:00 Hydromorphone HCl (Dilaudid Injection) 0.5 mg Q10M PRN IV SEVERE PAIN (7-10 PAIN SCALE) 09/14/24 13:00 09/14/24 13:41 DC Morphine Sulfate 2 mg Q4H PRN IV BREAKTHRU PAIN SCALE 7-10 09/14/24 13:00 09/14/24 17:01 Hydromorphone HCl (Dilaudid Injection) 0.25 mg Q10M PRN IV MODERATE PAIN (4-6 PAIN SCALE) 09/14/24 13:00 09/14/24 13:31 DC Morphine Sulfate 1 mg Q30M PRN IV SEVERE PAIN (7-10 PAIN SCALE) 09/14/24 13:00 09/14/24 15:01 DC Vital Signs Vital Signs Date Time Temp Pulse Resp B/P (MAP) Pulse Ox O2 Delivery O2 Flow Rate FiO2 09/14/24 14:37 Room Air 0 97 09/14/24 14:37 92 21 124/83 (97) 97 09/14/24 13:19 97.7 97.7 Labs/Diagnostic Data Labs Test 09/14/24 14:17 09/14/24 10:24 09/13/24 21:32 Range/Units POC Glucose 156 H 70-106 mg/dl White Blood Count 11.6 H 4.4-10.8 10^3/uL Red Blood Count 4.79 4.5-5.90 10^6/uL Hemoglobin 12.7 L 13.5-17.5 g/dL Hematocrit 38.4 L 41.0-53.0 % Mean Corpuscular Volume 80.2 80.0-100.0 fL Mean Corpuscular Hemoglobin 26.6 L 28.0-32.0 pg Mean Corpuscular Hemoglobin Concent 33.1 32.0-36.0 g/dL Red Cell Distribution Width 13.7 11.8-14.3 % Platelet Count 242 140-450 10^3/uL Mean Platelet Volume 8.8 6.9-10.8 fL Neutrophils (%) (Auto) 66.1 37.0-80.0 % Lymphocytes (%) (Auto) 22.1 10.0-50.0 % Monocytes (%) (Auto) 9.6 0.0-12.0 % Eosinophils (%) (Auto) 2.0 0.0-7.0 % Basophils (%) (Auto) 0.2 0.0-2.0 % Neutrophils # (Auto) 7.7 1.6-8.6 10 ^3/uL Lymphocytes # (Auto) 2.6 0.4-5.4 10 ^3/uL Monocytes # (Auto) 1.1 0-1.3 10 ^3/uL Eosinophils # (Auto) 0.2 0-0.8 10 ^3/uL Basophils # (Auto) 0 0-0.2 10 ^3/uL Nucleated Red Blood Cells 0.1 % Prothrombin Time 10.8 9.3-11.8 sec Prothrombin Time INR 1.02 0.9-1.15 Activated Partial Thromboplast Time 29.3 24.5-34.5 SEC Sodium Level 136 136-145 mmol/L Potassium Level 3.6 3.5-5.1 mmol/L Chloride Level 100 98-107 mmol/L Carbon Dioxide Level 27 20-31 mmol/L Anion Gap 9 5-15 Blood Urea Nitrogen 6 L 9-23 mg/dL Creatinine 0.51 L 0.700-1.30 mg/dL Glomerular Filtration Rate Calc 141 >90 mL/min BUN/Creatinine Ratio 11.8 10.0-20.0 Serum Glucose 157 H 74-106 mg/dL Calcium Level 9.2 8.7-10.4 mg/dL Lactic Acid Level 1.6 0.4-2.0 mmol/L Problems(with codes): (1) Diabetic foot infection (2) Osteomyelitis of toe (3) Cellulitis and abscess of foot (4) Necrotizing fasciitis (5) Cellulitis Plan/Recommendation ASSESSMENT AND PLAN: ID Problem List: - Necrotizing infection of right great toe - Osteomyelitis of right distal phalanx - Poorly controlled diabetes mellitus (A1C 8.6) - Diabetic nephropathy - Smoking - Alcohol use - Drug use Assessment This is a 29 y.o. male with a past medical history of poorly controlled diabetes mellitus, diabetic nephropathy, smoking, alcohol use, and drug use, who presents with necrotizing infection and osteomyelitis of the right great toe. The patient has had a diabetic foot wound since May of last year, which has worsened over the last several days with the development of acute necrosis. He denies fevers or chills but reports pain. Imaging Studies: - X-ray of the right foot showed soft tissue gas in the plantar tissues of the first distal phalanx, consistent with osteomyelitis. - Soft tissue swelling and cellulitis particularly about the right great toe and dorsum of the foot. - Edema in intrinsic muscles of the foot may reflect myositis or denervation. The patient underwent debridement on 09/14/2024, with an incision made to the right great hallux deep into the level of abscess and bone. Pus and chronic tissue were drained. Operative cultures are pending. Blood cultures are no growth to date. Plan: - Continue vancomycin. - Continue ceftriaxone 2g daily. - Follow up on operative culture results. - Anticipate need for six weeks of IV antibiotics; recommend PICC line placement. - Patient may require multiple surgical debridements over the next several days to address the acute necrotizing infection. - Monitor blood sugars closely; aim to keep blood glucose under 180 mg/dL. Ad just insulin regimen as needed. - Recommend ongoing wound care; patient may ultimately need a wound VAC. Defer to general surgery for management of postoperative wound and wound care. - Encourage smoking cessation, limit alcohol use, and cessation of drug use. - Follow up on blood cultures. Isolation Precautions: Standard Assessment and plan was discussed with the patient as written above Plan is subject to change pending incorporation of new incoming information/diagnostics. Updates may be added as addendum at the bottom (OR TOP) of this note Thank you for interesting consult. ID will continue to follow. Please contact Infectious disease for any questions or concerns. Ron Hess M.D. [facility] History: The patient's chart and medications were reviewed in detail and the patient was seen and examined. History obtained from: patient Mr. Curt Nelson is a 29 y.o. male with a past medical history of poorly controlled diabetes mellitus, diabetic nephropathy, smoking, alcohol use, and drug use, who presents with a necrotizing infection and osteomyelitis of the right great toe. The patient has had this diabetic foot wound since May of last year. He has been on multiple antibiotics, including doxycycline, with initial improvement. It worsened over the last several days and developed acute necrosis. He denies fevers or chills but reports pain. He denies any trauma to the foot. Review of Systems: A complete 10-system review of systems was completed and negative except as noted in the HPI or here. ROS: - CONSTITUTIONAL: Denies weight loss, fever, and chills. - HEENT: Denies changes in vision and hearing. - RESPIRATORY: Denies SOB and cough. - CV: Denies palpitations and chest pain. - GI: Denies abdominal pain, nausea, vomiting, and diarrhea. - : Denies dysuria and urinary frequency. - MSK: Reports pain and swelling in the right great toe. - SKIN: Reports necrotic tissue on the right great toe. - NEUROLOGICAL: Denies headache and syncope. - PSYCHIATRIC: Denies recent changes in mood. Denies anxiety and depression. Past Medical History: Diagnosis Date - Diabetes mellitus type 2 - Diabetic nephropathy - Smoking - Alcohol use - Drug use Past Surgical History: History reviewed. No pertinent surgical history. Home Medications: Prior to Admission medications Medication | Sig - | doxycycline hyclate (Vibramycin) 100 mg capsule | Take 1 capsule by mouth twice daily. Allergies: No known allergies Family History: Family History - Not on file Social History: Socioeconomic History - Marital status: Not on file - Lives at home Tobacco Use - Smoking status: Current smoker Substance Use - Alcohol use: Yes - Drug use: Yes Social Determinants of Health - Not on file Objective: Vital Signs on Arrival: - Temp: 98.3 F - BP: 126/73 mmHg - Pulse: [Not specified] - Resp: 20 - SpO2: [Not specified] Most Recent Vital Signs: - Temp: 98 F - BP: [Not specified] - Pulse: [Not specified] - Resp: [Not specified] - SpO2: [Not specified] Admission Weight: Weight: [Not specified]?BMI: [Not specified] Physical Exam: General: NAD Neck: Supple. No masses. HEENT: PERRL. Normal lids and conjunctiva. Moist mucous membranes. Oropharynx without lesions, exudates or excessive erythema. Normal appearance of the external aspects of the nose and ears. Heart: Regular rhythm, normal rate. No murmur. No lower extremity edema. Lungs: Normal respiratory effort. Clear to auscultation bilaterally. No wheezes. No crackles. Abdomen: Soft. Non-tender. Non-distended. No masses or abdominal hernia. Msk: No digital cyanosis. Normal strength and tone in all 4 limbs. Skin: Warm and dry, no rashes. Necrotic tissue with odorous discharge on right great toe; exudative tissue advancing from the toenail. Neuro: Alert. No facial droop or slurred speech. Extra-ocular movements intact. Sensation intact to soft touch in all 4 limbs. Psych: Appropriate mood. Full affect. Oriented to person, place, time, and situation. Lines: Active Lines - Peripheral IV Line Diagnostic Studies: Available diagnostic studies were reviewed personally. Significant relevant results and findings are outlined below or addressed in the Assessment and Plan above. Pertinent Imaging: X-ray Right Foot - Impression: - Soft tissue gas within the plantar tissues of the first distal phalanx suggestive of osteomyelitis. - Soft tissue swelling and cellulitis particularly about the right great toe and dorsum of the foot. - Edema of intrinsic muscles of the foot may reflect myositis or denervation. Labs: - Hemoglobin A1C: 8.6% - Blood cultures: No growth to date - Operative cultures: Pending Plan discussed with: Patient RON HESS MD Sep 14, 2024 16:16"
[2024-09-15] VITALS (8 sets, daily range): BP systolic 113–131; BP diastolic 67–81; PULSE 84–101; RESP 17–19; TEMP 97.5–98.8; O2SAT 94–99
[2024-09-15 09:41] LABS: Basophils # (auto) 0 10 ^3/uL (0-0.2); Basophils % (auto) 0.4 % (0.0-2.0); Eosinophils # (auto) 0.3 10 ^3/uL (0-0.8); Eosinophils % (auto) 2.7 % (0.0-7.0); Hematocrit 40.3 % (41.0-53.0); Hemoglobin 13.2 g/dL (13.5-17.5); Lymphocytes # (auto) 3.4 10 ^3/uL (0.4-5.4); Lymphocytes % (auto) 28.9 % (10.0-50.0); Mean Corpuscular Hemoglobin 26.5 pg (28.0-32.0); Mean Corpuscular Hgb Conc. 32.8 g/dL (32.0-36.0); Mean Corpuscular Volume 80.9 fL (80.0-100.0); Monocytes # (auto) 1.2 10 ^3/uL (0-1.3); Monocytes % (auto) 10.1 % (0.0-12.0); Neutrophils # (auto) 6.8 10 ^3/uL (1.6-8.6); Neutrophils % (auto) 57.9 % (37.0-80.0); Platelet Count (auto) 297 10^3/uL (140-450); Red Blood Cells 4.98 10^6/uL (4.5-5.90); Red Cell Distribution Width 13.9 % (11.8-14.3); White Blood Cell 11.7 10^3/uL (4.4-10.8)
[2024-09-15 09:49] LABS: Chloride 98 mmol/L (98-107); Potassium 4.3 mmol/L (3.5-5.1); Sodium 137 mmol/L (136-145)
[2024-09-15 09:50] LABS: Anion Gap 7 (5-15); Calcium 9.7 mg/dL (8.7-10.4)
[2024-09-15 09:58] LABS: BUN/Creatinine Ratio 6.8 (10.0-20.0); Blood Urea Nitrogen < 5 mg/dL (9-23); Carbon Dioxide 32 mmol/L (20-31); Glucose 146 mg/dL (74-106)
--- NOTE | 2024-09-15 12:17 | DVHPN2 ---
Progress Note - Dictate Date Seen: Sep 15, 2024 Medical Necessity Reason Pt with a Central, PICC or Fol: No vital signs Vital Sign Date Time Temp Pulse Resp B/P (MAP) Pulse Ox O2 Delivery O2 Flow Rate FiO2 09/15/24 09:00 98.3 96 17 119/67 (84) 96 98.3 09/15/24 08:00 Room Air* 0 21 Total Intake and Output 09/14/24 09/14/24 09/15/24 15:00 23:00 07:00 Intake Total 100 ml 450 ml Output Total 300 ml 2900 ml Balance 100 ml -300 ml -2450 ml medications Current Medications Medications Dose Ordered Sig/Sammi Route Start Time Stop Time Status Last Admin Dose Admin Sodium Chloride 1,000 ml @ 100 mls/hr Q10H IV 09/13/24 23:15 09/14/24 01:34 100 MLS/HR Docusate Sodium 100 mg BIDPRN PRN PO 09/13/24 23:15 Acetaminophen 650 mg Q6HP PRN PO 09/13/24 23:15 Acetaminophen/ Hydrocodone Bitart 1 tab Q6HPRN PRN PO 09/13/24 23:15 Ondansetron HCl 4 mg Q4HP PRN IV 09/13/24 23:15 09/13/24 23:49 4 MG Morphine Sulfate 2 mg Q4HPRN PRN IV 09/13/24 23:15 09/13/24 23:50 2 MG Nitroglycerin 0.4 mg Q5MINP PRN SL 09/13/24 23:15 Morphine Sulfate 2 mg Q30M PRN IV 09/13/24 23:15 Diagnostic Test (Pha) 1 strip Q6HR 09/14/24 00:00 09/15/24 11:50 1 STRIP Insulin Human Regular Q6HR SC 09/14/24 00:00 09/15/24 11:52 4 UNITS Dextrose 50 ml UD PRN IV 09/13/24 23:15 Vancomycin HCl 0 ml @ 0 mls/hr UD IV 09/13/24 23:15 Piperacillin Sod/ Tazobactam Sod 100 ml @ 100 mls/hr TID IV 09/14/24 05:00 09/15/24 05:31 100 MLS/HR Vancomycin HCl 250 ml @ 200 mls/hr Q8H IV 09/14/24 16:00 2/15/25 08:16 200 MLS/HR laboratory and microbiology Laboratory Tests 09/15/24 09:13 Test 09/15/24 09:13 Range/Units Serum Glucose 146 H 74-106 mg/dL Assessment/Plan 1. Right foot I&D to bone () 2. Right hallux distal phalanx bone biopsy () Patient underwent a successful foot wound debridement. Dressing is in place. Has not re-evaluated by city planner this weekend. Clinically stable. Hemoglobin A1c is above eight. Patient counseled educated regarding good blood sugar control for appropriate healing of his wound. Meantime I will switch Zosyn to Rocephin and continue the vancomycin given risk of nephrotoxicity with the Zosyn plus vanc. Otherwise continue rest of supportive care and treatment. Discharge plan for recommendations from city planner and Infectious Disease. Problems(with codes): (1) Cellulitis and abscess of foot (2) Cellulitis Plan discussed with: Other YRIS COREAS MD Sep 15, 2024 12:17
[2024-09-16] VITALS (8 sets, daily range): BP systolic 103–120; BP diastolic 69–97; PULSE 80–90; RESP 16–18; TEMP 98.1–99; O2SAT 93–98
[2024-09-16 06:27] LABS: Basophils # (auto) 0.1 10 ^3/uL (0-0.2); Basophils % (auto) 0.5 % (0.0-2.0); Eosinophils # (auto) 0.3 10 ^3/uL (0-0.8); Eosinophils % (auto) 2.6 % (0.0-7.0); Hematocrit 40.9 % (41.0-53.0); Hemoglobin 13.8 g/dL (13.5-17.5); Lymphocytes # (auto) 2.9 10 ^3/uL (0.4-5.4); Lymphocytes % (auto) 27.8 % (10.0-50.0); Mean Corpuscular Hemoglobin 27.1 pg (28.0-32.0); Mean Corpuscular Hgb Conc. 33.7 g/dL (32.0-36.0); Mean Corpuscular Volume 80.4 fL (80.0-100.0); Monocytes % (auto) 9.8 % (0.0-12.0); Neutrophils # (auto) 6.2 10 ^3/uL (1.6-8.6); Neutrophils % (auto) 59.3 % (37.0-80.0); Platelet Count (auto) 312 10^3/uL (140-450); Red Blood Cells 5.09 10^6/uL (4.5-5.90); Red Cell Distribution Width 13.8 % (11.8-14.3); White Blood Cell 10.5 10^3/uL (4.4-10.8)
[2024-09-16] MEDS: cefTRIAXone 1GM/50ML D5W 50 ML IV SCH (08:57)
--- NOTE | 2024-09-16 14:39 | DVHPN2 ---
Progress Note - Dictate Date Seen: Sep 16, 2024 Medical Necessity Reason Pt with a Central, PICC or Fol: No vital signs Vital Sign Date Time Temp Pulse Resp B/P (MAP) Pulse Ox O2 Delivery O2 Flow Rate FiO2 09/16/24 13:00 98.8 89 18 115/69 (84) 98 98.8 09/15/24 20:00 Room Air* 0 21 Total Intake and Output 09/15/24 09/15/24 09/16/24 15:00 23:00 07:00 Intake Total 464 ml 2129 ml 2320 ml Output Total 2450 ml 3400 ml Balance 464 ml -321 ml -1080 ml medications Current Medications Medications Dose Ordered Sig/Sammi Route Start Time Stop Time Status Last Admin Dose Admin Sodium Chloride 1,000 ml @ 100 mls/hr Q10H IV 09/13/24 23:15 09/16/24 11:48 100 MLS/HR Docusate Sodium 100 mg BIDPRN PRN PO 09/13/24 23:15 Acetaminophen 650 mg Q6HP PRN PO 09/13/24 23:15 Acetaminophen/ Hydrocodone Bitart 1 tab Q6HPRN PRN PO 09/13/24 23:15 Ondansetron HCl 4 mg Q4HP PRN IV 09/13/24 23:15 09/13/24 23:49 4 MG Morphine Sulfate 2 mg Q4HPRN PRN IV 09/13/24 23:15 09/13/24 23:50 2 MG Nitroglycerin 0.4 mg Q5MINP PRN SL 09/13/24 23:15 Morphine Sulfate 2 mg Q30M PRN IV 09/13/24 23:15 Diagnostic Test (Pha) 1 strip Q6HR 09/14/24 00:00 09/16/24 11:48 1 STRIP Insulin Human Regular Q6HR SC 09/14/24 00:00 09/16/24 11:53 6 UNITS Dextrose 50 ml UD PRN IV 09/13/24 23:15 Vancomycin HCl 0 ml @ 0 mls/hr UD IV 09/13/24 23:15 Vancomycin HCl 250 ml @ 200 mls/hr Q8H IV 09/14/24 16:00 09/16/24 08:50 200 MLS/HR Ceftriaxone Sodium 50 ml @ 100 mls/hr DAILY@09 IV 09/16/24 09:00 2/16/25 08:57 100 MLS/HR laboratory and microbiology Laboratory Tests 09/16/24 05:31 09/15/24 09:13 Test 09/15/24 09:13 Range/Units Serum Glucose 146 H 74-106 mg/dL Assessment/Plan 1. Right foot I&D to bone () 2. Right hallux distal phalanx bone biopsy () Patient underwent a successful foot wound debridement. Dressing is in place. Has not re-evaluated by code enforcement supervisor this weekend. Clinically stable. Hemoglobin A1c is above eight. Patient counseled educated regarding good blood sugar control for appropriate healing of his wound. Discussed with the infectious disease physician and recommending PICC line and to arrange IV antibiotics. We will stop the IV fluids. Chemical Operations Specialist consultation for home antibiotics and wound care. Discussed with the nurse. Problems(with codes): (1) Cellulitis (2) Osteomyelitis of toe Plan discussed with: Patient, Other YRIS COREAS MD Sep 16, 2024 14:39
--- NOTE | 2024-09-16 19:55 | DVHPN2 ---
Consult Progress Note Date Seen: Sep 15, 2024 Subjective Patient reports: Other (states toe pain is much better and is no longer having any discomfort , great toe is wrapped and not bleeding ) Objective vital signs Vital Sign Date Time Temp Pulse Resp B/P (MAP) Pulse Ox O2 Delivery O2 Flow Rate FiO2 09/16/24 17:00 98.1 83 18 115/69 (84) 97 98.1 09/16/24 08:00 Room Air* 0 21 Total Intake and Output 09/15/24 09/15/24 09/16/24 15:00 23:00 07:00 Intake Total 464 ml 2129 ml 2320 ml Output Total 2450 ml 3400 ml Balance 464 ml -321 ml -1080 ml medications Current Medications Medications Dose Ordered Sig/Sammi Route Start Time Stop Time Status Last Admin Dose Admin Docusate Sodium 100 mg BIDPRN PRN PO 09/13/24 23:15 Acetaminophen 650 mg Q6HP PRN PO 09/13/24 23:15 Acetaminophen/ Hydrocodone Bitart 1 tab Q6HPRN PRN PO 09/13/24 23:15 Ondansetron HCl 4 mg Q4HP PRN IV 09/13/24 23:15 09/13/24 23:49 4 MG Morphine Sulfate 2 mg Q4HPRN PRN IV 09/13/24 23:15 09/13/24 23:50 2 MG Nitroglycerin 0.4 mg Q5MINP PRN SL 09/13/24 23:15 Morphine Sulfate 2 mg Q30M PRN IV 09/13/24 23:15 Diagnostic Test (Pha) 1 strip Q6HR 09/14/24 00:00 09/16/24 17:35 1 STRIP Insulin Human Regular Q6HR SC 09/14/24 00:00 09/16/24 17:36 3 UNITS Dextrose 50 ml UD PRN IV 09/13/24 23:15 Vancomycin HCl 0 ml @ 0 mls/hr UD IV 09/13/24 23:15 Vancomycin HCl 250 ml @ 200 mls/hr Q8H IV 09/14/24 16:00 09/16/24 17:46 200 MLS/HR Ceftriaxone Sodium 50 ml @ 100 mls/hr DAILY@09 IV 09/16/24 09:00 09/16/24 08:57 100 MLS/HR Physical Exam: General: NAD Neck: Supple. No masses. HEENT: PERRL. Normal lids and conjunctiva. Moist mucous membranes. Oropharynx without lesions, exudates or excessive erythema. Normal appearance of the external aspects of the nose and ears. Heart: Regular rhythm, normal rate. No murmur. No lower extremity edema. Lungs: Normal respiratory effort. Clear to auscultation bilaterally. No wheezes. No crackles. Abdomen: Soft. Non-tender. Non-distended. No masses or abdominal hernia. Msk: No digital cyanosis. Normal strength and tone in all 4 limbs. Skin: Warm and dry, no rashes. Necrotic tissue with odorous discharge on right great toe; exudative tissue advancing from the toenail. Neuro: Alert. No facial droop or slurred speech. Extra-ocular movements intact. Sensation intact to soft touch in all 4 limbs. Psych: Appropriate mood. Full affect. Oriented to person, place, time, and situation. laboratory and microbiology Laboratory Tests 09/16/24 05:31 09/15/24 09:13 Test 09/15/24 09:13 Range/Units Serum Glucose 146 H 74-106 mg/dL Problem List/Assessment/Plan Problems(with codes): (1) Diabetic foot infection (2) Osteomyelitis of toe (3) Cellulitis and abscess of foot (4) Necrotizing fasciitis (5) Cellulitis Problem List/Assessment/Plan ID Problem List: - Necrotizing infection of right great toe - Osteomyelitis of right distal phalanx - Poorly controlled diabetes mellitus (A1C 8.6) - Diabetic nephropathy - Smoking - Alcohol use - Drug use Assessment This is a 29 y.o. male with a past medical history of poorly controlled diabetes mellitus, diabetic nephropathy, smoking, alcohol use, and drug use, who presents with necrotizing infection and osteomyelitis of the right great toe. The patient has had a diabetic foot wound since May of last year, which has worsened over the last several days with the development of acute necrosis. He denies fevers or chills but reports pain. Imaging Studies: - X-ray of the right foot showed soft tissue gas in the plantar tissues of the first distal phalanx, consistent with osteomyelitis. - Soft tissue swelling and cellulitis particularly about the right great toe and dorsum of the foot. - Edema in intrinsic muscles of the foot may reflect myositis or denervation. The patient underwent debridement on 09/14/2024, with an incision made to the right great hallux deep into the level of abscess and bone. Pus and chronic tissue were drained. Operative cultures are pending. Blood cultures are no growth to date. 09/15: Patient is growing coagnegative staph , Provella buchea and gram negative rods on culture Plan: - Start Flagyl - Continue vancomycin for 6 weeks IV - Continue ceftriaxone 2g daily 6 weeks IV - In addition to oral Flagyl 500 mg 3x a day for 6 weeks - monitor patient clinically due to undergoing additional surgery - Follow up on operative culture results. - Anticipate need for six weeks of IV antibiotics; recommend PICC line placement. - Patient may require multiple surgical debridements over the next several days to address the acute necrotizing infection. - Monitor blood sugars closely; aim to keep blood glucose under 180 mg/dL. Adjust insulin regimen as needed. - Recommend ongoing wound care; patient may ultimately need a wound VAC. Defer to general surgery for management of postoperative wound and wound care. - Encourage smoking cessation, limit alcohol use, and cessation of drug use. - Follow up on blood cultures. Isolation Precautions: Standard Plan discussed with: RON Loyd MD Sep 16, 2024 19:55
[2024-09-16] MEDS: metroNIDAZOLE 500MG/100ML 100 ML IV SCH (22:08)
[2024-09-17] VITALS (9 sets, daily range): BP systolic 112–128; BP diastolic 69–76; PULSE 71–97; RESP 14–20; TEMP 97.8–98.5; O2SAT 94–100
[2024-09-17 08:20] LABS: Calcium 9.4 mg/dL (8.7-10.4); Chloride 101 mmol/L (98-107); Sodium 138 mmol/L (136-145)
[2024-09-17 08:21] LABS: Anion Gap 8 (5-15); Carbon Dioxide 29 mmol/L (20-31)
[2024-09-17 08:22] LABS: Basophils # (auto) 0 10 ^3/uL (0-0.2); Eosinophils # (auto) 0.2 10 ^3/uL (0-0.8); Monocytes % (auto) 8.6 % (0.0-12.0); Neutrophils # (auto) 6.3 10 ^3/uL (1.6-8.6)
[2024-09-17 08:25] LABS: Basophils % (auto) 0.4 % (0.0-2.0); Eosinophils % (auto) 2.3 % (0.0-7.0); Hematocrit 39.9 % (41.0-53.0); Hemoglobin 13.5 g/dL (13.5-17.5); Lymphocytes # (auto) 2.4 10 ^3/uL (0.4-5.4); Lymphocytes % (auto) 24.6 % (10.0-50.0); Mean Corpuscular Hgb Conc. 33.9 g/dL (32.0-36.0); Mean Corpuscular Volume 79.7 fL (80.0-100.0); Monocytes # (auto) 0.8 10 ^3/uL (0-1.3); Neutrophils % (auto) 64.1 % (37.0-80.0); Platelet Count (auto) 301 10^3/uL (140-450); Red Cell Distribution Width 13.5 % (11.8-14.3); White Blood Cell 9.8 10^3/uL (4.4-10.8)
[2024-09-17 08:30] LABS: Blood Urea Nitrogen 8 mg/dL (9-23); Glucose 118 mg/dL (74-106); Potassium 3.4 mmol/L (3.5-5.1)
[2024-09-17] MEDS ORDERED: LIDOCAINE 1% INJ PF 5ML AMP ONE (09:00)
[2024-09-17] MEDS: METOCLOPRAMIDE HCL 5MG/ml INJ 2ml VIAL IV ONE (09:00)
[2024-09-17] MEDS ORDERED: HYDROmorphone HCL 2 MG/ML VL/or syr IV PRN ×2 (09:00)
[2024-09-17] MEDS ORDERED: ONDANSETRON HCL 4 MG/2 ML VIAL ONE (09:00)
[2024-09-17] MEDS ORDERED: KETAMINE 50mg/ML 1ml syringe ONE (09:00)
[2024-09-17] MEDS ORDERED: MIDAZOLAM HCL 2MG/2ML 2ml VIAL (1mg/ml) ONE (09:00)
[2024-09-17] MEDS ORDERED: MORPHINE SULFATE INJ 2 MG/ml SYRG IV PRN (09:00)
[2024-09-17] MEDS ORDERED: SODIUM CHLORIDE LOCK 10 ML ONE (09:00)
[2024-09-17] MEDS ORDERED: fentaNYL CITRATE 100 MCG/2 ML VL ONE (09:00)
[2024-09-17] MEDS ORDERED: PROPOFOL 10 MG/ML 20 ML IV ONE (09:00)
[2024-09-17] MEDS ORDERED: MORPHINE SULFATE 4 MG/ML SYR/VIAL IV PRN (09:00)
--- NOTE | 2024-09-17 09:55 | DVHPN2 ---
Subjective 29-year-old male with past medical history of uncontrolled DM presents with complaints Swelling and Pain to the right great toe. Patient was first diagnosed with a diabetic wound On May 12, 2024 at [facility] ER. Patient was prescribed antibiotics (Doxycycline and Mupirocin ointment) at that time. Patient Confirmed he has tried to seek help for the wound. Also states it has just gotten worse. At this time there are no complaints of fevers, chills, shortness of breath, chest pain, abdominal pain, nausea, vomiting, Additional wounds. Changes from previous H/P or p: No Changes Eyes: No Pain, No Vision change, No Conjunctivae inflammation, No Eyelid inflammation, No Other, No Redness ENT: No Ear pain, No Ear discharge, No Nose pain, No Nose discharge, No Nose congestion, No Mouth pain, No Mouth swelling, No Throat pain, No Throat swelling, No Other Cardiovascular: No Chest Pain, No Palpitations, No Orthopnea, No Paroxysmal Noc. Dyspnea, No Edema, No Lt Headedness, No Other Respiratory: No Cough, No Dry, No Shortness of breath, No SOB with excertion, No Wheezing, No Hemoptysis, No Pleuritic Pain, No Sputum, No Other Gastrointestinal: No Nausea, No Vomiting, No Abdominal Pain, No Diarrhea, No Constipation, No Melena, No Hematochezia, No Other Genitourinary: No Dysuria, No Frequency, No Incontinence, No Hematuria, No Retention, No Other Musculoskeletal: foot pain Skin: No Rash, No Lesions, No Jaundice, No Bruising; Other (blackened skin to right great toe) Objective Vitals Vital Signs Date Time Temp Pulse Resp B/P (MAP) Pulse Ox O2 Delivery O2 Flow Rate FiO2 09/17/24 08:15 Room Air* 0 21 09/17/24 05:00 98.2 86 18 115/73 (87) 98 98.2 Intake/Output Intake and Output 09/17/24 07:00 Intake Total 2695 ml Output Total 1000 ml Balance 1695 ml Intake Oral 1370 ml IV Total 1325 ml Output Urine Total 1000 ml # Voids 2 Exam DERMATOLOGIC EXAM: - Skin is dry and cool to the touch dry bilaterally. - Nails 1-5 of the bilateral foot are thickened, discolored, dystrophic, and tender to palpate with subungual debris - Hair loss noted to bilateral feet Wound #1: Location: Right hallux Measurements: Length cm x width cm x depth cm. Wound margins: Hyperkeratotic. Wound base: Full thickness. General Appearance: Necrotic Probes to Bone: Yes Purulent drainage: Yes Serous drainage: No Erythema: Toe VASCULAR EXAM: - DP and PT pulses are palpable bilaterally. - BUSH HOG OPERATOR is brisk to all digits. - Feet are cool to touch compared to lower legs bilaterally. NEUROLOGIC EXAM: - Normal light touch sensation to the superficial peroneal, deep peroneal, sural, saphenous, and tibial nerve branches. - Protective sensation is diminished as tested with a 5.07 10g [place] bilaterally. MUSCULOSKELETAL EXAM: - No gross deformities - Muscle strength is 5/5 and active motion is pain-free and symmetrical bilaterally - No pain or crepitation with passive range of motion bilaterally to all major pedal joints Medications Current Medications Medications Dose Ordered Sig/Sammi Route Start Time Stop Time Status Last Admin Dose Admin Docusate Sodium 100 mg BIDPRN PRN PO 09/13/24 23:15 Acetaminophen 650 mg Q6HP PRN PO 09/13/24 23:15 Acetaminophen/ Hydrocodone Bitart 1 tab Q6HPRN PRN PO 09/13/24 23:15 Ondansetron HCl 4 mg Q4HP PRN IV 09/13/24 23:15 09/13/24 23:49 4 MG Morphine Sulfate 2 mg Q4HPRN PRN IV 09/13/24 23:15 09/13/24 23:50 2 MG Nitroglycerin 0.4 mg Q5MINP PRN SL 09/13/24 23:15 Morphine Sulfate 2 mg Q30M PRN IV 09/13/24 23:15 Diagnostic Test (Pha) 1 strip Q6HR 09/14/24 00:00 09/17/24 05:50 1 STRIP Insulin Human Regular Q6HR SC 09/14/24 00:00 09/16/24 23:58 4 UNITS Dextrose 50 ml UD PRN IV 09/13/24 23:15 Vancomycin HCl 0 ml @ 0 mls/hr UD IV 09/13/24 23:15 Vancomycin HCl 250 ml @ 200 mls/hr Q8H IV 09/14/24 16:00 09/17/24 07:54 200 MLS/HR Ceftriaxone Sodium 50 ml @ 100 mls/hr DAILY@09 IV 09/16/24 09:00 09/16/24 08:57 100 MLS/HR Metronidazole 100 ml @ 100 mls/hr Q8HR IV 09/16/24 22:00 09/17/24 05:50 100 MLS/HR Hydromorphone HCl 0.5 mg Q10M PRN IV 09/17/24 09:00 09/17/24 09:41 UNV Morphine Sulfate 2 mg Q4H PRN IV 09/17/24 09:00 09/17/24 13:01 UNV Hydromorphone HCl 0.25 mg Q10M PRN IV 09/17/24 09:00 09/17/24 09:31 UNV Morphine Sulfate 1 mg Q30M PRN IV 09/17/24 09:00 09/17/24 11:01 UNV Laboratory Results Laboratory Tests 09/17/24 07:30 Chemistry Test 09/17/24 07:30 Calcium Level 9.4 mg/dL (8.7-10.4) Microbiology Microbiology Date/Time Source Procedure Growth Status 09/14/24 13:12 Toe Gram Stain - Final Resulted 09/14/24 13:12 Anaerobic Culture - Final Prevotella buccae Resulted 09/14/24 13:12 Toe Aerobic Culture - Preliminary Resulted 09/13/24 21:32 Blood Blood Culture - Preliminary NO GROWTH AFTER 72 HOURS OF INCUBATION. Resulted Assessment/Plan Assessment/Plan ASSESSMENT: Patient is a 29 year old seen on the floor for a worsening ulcer 3 day s/p right foot I&D PLAN: - The patients chart was reviewed, clinical findings were discussed with the patient, the etiologies of the conditions were discussed in detail, and a treatment plan was agreed to at this time, with both oral and written instructions provided. - reviewed advanced imaging - discussed plan is to perform an incision and drainage - patient will be NPO since midnight - take him to the OR today - we will plan to close today - patient will need IV picc line - can weightbear as tolerated in postoperative shoe All questions were answered and concerns addressed to the patient's satisfaction. The patient was given the phone number to the clinic and was told how to make contact with the clinic should any concerns or questions arise. Patient understands that if any questions or concerns arise prior to the next appointment, we should be contacted immediately. FOLLOW-UP: Continue to follow while inpatient Plan discussed with: Patient My Orders Orders - GEORGES HAHN DPM Procedure Category Date Status Time Npo After Midnight DIET 09/17/24 Transmitted Breakfast Obtain Consent For: ORDERS 09/16/24 Transmitted 20:31 Problem List: (1) Cellulitis (2) Necrotizing fasciitis (3) Cellulitis and abscess of foot (4) Osteomyelitis of toe (5) Diabetic foot infection Date of Service: Sep 17, 2024 Billing Provider: GEORGES HAHN DPM Common Visit Codes: [id number] INP/OBS CARE(MOD) GEORGES HAHN DPM Sep 17, 2024 09:55
[2024-09-17] MEDS: BUPIVACAINE 0.5% MPF INJ 30ML SDV IJ ONE (10:10)
[2024-09-17] MEDS ORDERED: VANCOMYCIN HCL 1000 MG VL ONE (10:11)
--- NOTE | 2024-09-17 10:33 | DVHOP2 ---
Operative Report - 2 Report Details Date: 09/17/24 Preop Diagnosis: 1. Right hallux osteomyelitis 2. Right hallux gas gangrene 3. Right hallux abscess 4. Right foot cellulitis Postop Diagnosis: Same as preop Surgeon: Georges Hahn MD Anesthesiologist: See anesthesia Anesthesia: Mac Consent: The patient was informed of the risks and benefits of the procedure. These include but are not limited to complications of anesthesia, postoperative infection, incomplete relief of symptoms, recurrence of symptoms, damage to blood vessels, nerves and tendons, deep venous thrombosis, pulmonary embolism and possible need for repeat surgery in the future. Complications: None Estimated Blood Loss: Minimal Fluids: See anesthesia Findings: Consistent with diagnosis Indications for Surgery: Worsening right foot wound Name of Procedure Performed 1. Right foot I&D to bone (85922) 2. Right rotational flap (63959) 3. Right foot delayed closure (83538) Procedure Details Procedure Details: PRE-PROCEDURE INFORMATION: In the pre-op holding area, the extremity to be operated on was clearly marked and the patient verified correct laterality of the marking. The patient was transferred to the OR table and placed in a supine position. A timeout was performed in which identification of the correct patient, procedure, location, and materials was done. The right foot and leg were prepped and draped in normal sterile fashion. DESCRIPTION OF PROCEDURE: Attention was directed to the right where area of fluctuance was noted. An incision was made over this area and was deepened through blunt dissection. The incision was deepened to the level of abscess and bone. Care was taken to the dissection to avoid any neurovascular and tendinous structures. The incision was deepened to the bone, and the abscess appeared to be purulent fluid consistent with pus. The cortices of the bone was then removed with Mick an all necrotic tissue. After the abscess was drained, the area was irrigated with 3 L normal saline using cysto tubing. Using a 15. Blade, the edges of the wound were excised in the overlapping skin were excised to allow for rotation of the skin to close over the exposed wound. 1 g of vancomycin powder was placed into the incision. A delayed closure was then performed using 2-0 nylon after was deemed appropriate with no longer concern for infection. POSTOPERATIVE INFORMATION: The patient tolerated the above noted procedure and anesthesia well and was transferred to the PACU with vital signs stable, and vascular status intact with capillary refill intact to all digits. Patient can return to the floor and continue IV antibiotics. Patient will need 6 weeks of IV antibiotics. Patient can weightbear as tolerated in the postoperative shoe. Patient will follow up with me 1 week after discharge. Condition Good Disposition Still a Patient GEORGES HAHN DPM Sep 17, 2024 10:32
--- NOTE | 2024-09-17 12:34 | DVHDS2 ---
Discharge Summary Date of Admission Sep 13, 2024 at 23:06 Date of Discharge: Sep 17, 2024 Labs/Diagnostic Data: Laboratory Results Test 09/17/24 11:36 09/17/24 07:30 09/15/24 23:00 09/14/24 10:24 POC Glucose 133 mg/dl (70-106) White Blood Count 9.8 10^3/uL (4.4-10.8) Red Blood Count 5.00 10^6/uL (4.5-5.90) Hemoglobin 13.5 g/dL (13.5-17.5) Hematocrit 39.9 % (41.0-53.0) Mean Corpuscular Volume 79.7 fL (80.0-100.0) Mean Corpuscular Hemoglobin 27.0 pg (28.0-32.0) Mean Corpuscular Hemoglobin Concent 33.9 g/dL (32.0-36.0) Red Cell Distribution Width 13.5 % (11.8-14.3) Platelet Count 301 10^3/uL (140-450) Mean Platelet Volume 8.2 fL (6.9-10.8) Neutrophils (%) (Auto) 64.1 % (37.0-80.0) Lymphocytes (%) (Auto) 24.6 % (10.0-50.0) Monocytes (%) (Auto) 8.6 % (0.0-12.0) Eosinophils (%) (Auto) 2.3 % (0.0-7.0) Basophils (%) (Auto) 0.4 % (0.0-2.0) Neutrophils # (Auto) 6.3 10 ^3/uL (1.6-8.6) Lymphocytes # (Auto) 2.4 10 ^3/uL (0.4-5.4) Monocytes # (Auto) 0.8 10 ^3/uL (0-1.3) Eosinophils # (Auto) 0.2 10 ^3/uL (0-0.8) Basophils # (Auto) 0 10 ^3/uL (0-0.2) Nucleated Red Blood Cells 0.0 % Sodium Level 138 mmol/L (136-145) Potassium Level 3.4 mmol/L (3.5-5.1) Chloride Level 101 mmol/L (98-107) Carbon Dioxide Level 29 mmol/L (20-31) Anion Gap 8 (5-15) Blood Urea Nitrogen 8 mg/dL (9-23) Creatinine 0.57 mg/dL (0.700-1.30) Glomerular Filtration Rate Calc 136 mL/min (>90) BUN/Creatinine Ratio 14.0 (10.0-20.0) Serum Glucose 118 mg/dL (74-106) Calcium Level 9.4 mg/dL (8.7-10.4) Vancomycin Level Trough 10.1 ug/mL (5-10) Prothrombin Time 10.8 sec (9.3-11.8) Prothrombin Time INR 1.02 (0.9-1.15) Activated Partial Thromboplast Time 29.3 SEC (24.5-34.5) Hemoglobin A1c 8.6 % A1C (<5.7) Test 09/13/24 21:32 Lactic Acid Level 1.6 mmol/L (0.4-2.0) Other Laboratory Tests 09/17/24 07:30 Brief Hx & Hospital Course: 29-year-old male with past medical history of uncontrolled DM presents with complaints Swelling and Pain to the right great toe. Patient was first diagnosed with a diabetic wound On May 12, 2024 at [facility] ER. Patient was prescribed antibiotics (Doxycycline and Mupirocin ointment) at that time. Patient Confirmed he has tried to seek help for the wound. Also states it has just gotten worse. At this time there are no complaints of fevers, chills, shortness of breath, chest pain, abdominal pain, nausea, vomiting, Additional wounds. He is admitted and evaluated by it infrastructure project manager and Infectious Disease physician. Patient underwent debridement surgery and felt possible osteomyelitis. Therefore patient had a PICC line placed and IV antibiotic arranged per Infectious Disease recommendation. Patient postop did well without any issues. He is stable. Feeling better back to baseline normal status. Therefore he is being discharged home. He is however advised to finish the antibiotics and have close follow up with the infectious disease physician and it infrastructure project manager. I have talked with the patient regarding this, his hospital diagnosis, treatment he received, discharge medications, discharge instructions follow-up plan of care. He has verbalized understanding of these and agree with the care plan as mentioned Operations or Procedures Operative Report - 2 Report Details Date: 09/17/24 Preop Diagnosis: 1. Right hallux osteomyelitis 2. Right hallux gas gangrene 3. Right hallux abscess 4. Right foot cellulitis Postop Diagnosis: Same as preop Surgeon: Nasim Page MD Anesthesiologist: See anesthesia Anesthesia: Mac Consent: The patient was informed of the risks and benefits of the procedure. These include but are not limited to complications of anesthesia, postoperative infection, incomplete relief of symptoms, recurrence of symptoms, damage to blood vessels, nerves and tendons, deep venous thrombosis, pulmonary embolism and possible need for repeat surgery in the future. Complications: None Estimated Blood Loss: Minimal Fluids: See anesthesia Findings: Consistent with diagnosis Indications for Surgery: Worsening right foot wound Name of Procedure Performed 1. Right foot I&D to bone (24606) 2. Right rotational flap (38405) 3. Right foot delayed closure (64552) Procedure Details Procedure Details: PRE-PROCEDURE INFORMATION: In the pre-op holding area, the extremity to be operated on was clearly marked and the patient verified correct laterality of the marking. The patient was transferred to the OR table and placed in a supine position. A timeout was performed in which identification of the correct patient, procedure, location, and materials was done. The right foot and leg were prepped and draped in normal sterile fashion. DESCRIPTION OF PROCEDURE: Attention was directed to the right where area of fluctuance was noted. An incision was made over this area and was deepened through blunt dissection. The incision was deepened to the level of abscess and bone. Care was taken to the dissection to avoid any neurovascular and tendinous structures. The incision was deepened to the bone, and the abscess appeared to be purulent fluid consistent with pus. The cortices of the bone was then removed with Mick an all necrotic tissue. After the abscess was drained, the area was irrigated with 3 L normal saline using cysto tubing. Using a 15. Blade, the edges of the wound were excised in the overlapping skin were excised to allow for rotation of the skin to close over the exposed wound. 1 g of vancomycin powder was placed into the incision. A delayed closure was then performed using 2-0 nylon after was deemed appropriate with no longer concern for infection. POSTOPERATIVE INFORMATION: The patient tolerated the above noted procedure and anesthesia well and was transferred to the PACU with vital signs stable, and vascular status intact with capillary refill intact to all digits. Patient can return to the floor and continue IV antibiotics. Patient will need 6 weeks of IV antibiotics. Patient can weightbear as tolerated in the postoperative shoe. Patient will follow up with me 1 week after discharge. Condition Good Condition at Discharge: Stable Final Diagnosis/Problems List Foot osteomylitis s/p I and D on IV antibiotics via PICC line, DM2 Discharge Disposition: Home with Health Services Discharge Instruct/Medications Diet: Consistent carbohydrate, Cardiac 2g Na,low cholest Activity: No Restrictions, As Tolerated Follow Up/Referral: Agricultural Produce Washer next week and Dr. Ragini Hess ID 2 weeks for foot wound eval and antibiotics Medications: home meds and IV antibiotics per Infectious doctor Deshawn. New Medications: Ibuprofen (Ibuprofen) 600 Mg Tab 1 TAB PO Q4HPRN PRN, #20 TAB Continued Medications: Metformin Hydrochloride (Metformin Hcl) 1,000 Mg Tab 500 MG PO BID Discharge Statement: "Patient was advised to return to the ER or call 911 if any headaches, dizziness, shortness of breath, chest pain, abdominal pain, bleeding, fevers, or worsening of medical condition. Patient was counseled about treatment plan, medications, possible side effects, patientverbalized understanding. All questions were answered to the best of my ability. This discharge took greater then 30 minutes in planning, reviewing documentation, counseling the patient, and discussing with other team members." ASSESSMENT ASSESSMENT Assessment Foot osteomylitis s/p I and D, DM2 YRIS COREAS MD Sep 17, 2024 12:34
[2024-09-17] MEDS ORDERED: IBUP-1454 PO (12:35)
[2024-09-17] MEDS: POTASSIUM CHL 20 Meq TABLET PO ONE (15:25)
[2024-09-17] MEDS: LIDOCAINE 1% (LOCAL ANESTH.) PF 5ml SDV ID ONE (16:00)
--- NOTE | 2024-09-17 21:56 | DVHPN2 ---
Consult Progress Note Date Seen: Sep 17, 2024 Subjective Patient reports: Other (came back from operative debridement procedure 2x and states having no pain , a bit lethargic ) Objective vital signs Vital Sign Date Time Temp Pulse Resp B/P (MAP) Pulse Ox O2 Delivery O2 Flow Rate FiO2 09/17/24 17:23 97.9 83 16 112/69 (83) 96 97.9 09/17/24 10:24 Mask 9.0 09/17/24 08:15 21 Total Intake and Output 09/16/24 09/16/24 09/17/24 15:00 23:00 07:00 Intake Total 1075 ml 1420 ml 200 ml Output Total 1000 ml Balance 1075 ml 420 ml 200 ml medications Current Medications Medications Dose Ordered Sig/Sammi Route Start Time Stop Time Status Last Admin Dose Admin Docusate Sodium 100 mg BIDPRN PRN PO 09/13/24 23:15 Acetaminophen 650 mg Q6HP PRN PO 09/13/24 23:15 Acetaminophen/ Hydrocodone Bitart 1 tab Q6HPRN PRN PO 09/13/24 23:15 Ondansetron HCl 4 mg Q4HP PRN IV 09/13/24 23:15 09/13/24 23:49 4 MG Morphine Sulfate 2 mg Q4HPRN PRN IV 09/13/24 23:15 09/13/24 23:50 2 MG Nitroglycerin 0.4 mg Q5MINP PRN SL 09/13/24 23:15 Morphine Sulfate 2 mg Q30M PRN IV 09/13/24 23:15 Diagnostic Test (Pha) 1 strip Q6HR 09/14/24 00:00 09/17/24 17:06 1 STRIP Insulin Human Regular Q6HR SC 09/14/24 00:00 09/17/24 17:51 3 UNITS Dextrose 50 ml UD PRN IV 09/13/24 23:15 Vancomycin HCl 0 ml @ 0 mls/hr UD IV 09/13/24 23:15 Vancomycin HCl 250 ml @ 200 mls/hr Q8H IV 09/14/24 16:00 09/17/24 17:06 200 MLS/HR Ceftriaxone Sodium 50 ml @ 100 mls/hr DAILY@09 IV 09/16/24 09:00 09/17/24 11:07 100 MLS/HR Metronidazole 100 ml @ 100 mls/hr Q8HR IV 09/16/24 22:00 09/17/24 13:29 100 MLS/HR Sodium Chloride 10 ml QSHIFT@10,22 IV 09/17/24 22:00 Physical Exam: General: NAD Neck: Supple. No masses. HEENT: PERRL. Normal lids and conjunctiva. Moist mucous membranes. Oropharynx without lesions, exudates or excessive erythema. Normal appearance of the external aspects of the nose and ears. Heart: Regular rhythm, normal rate. No murmur. No lower extremity edema. Lungs: Normal respiratory effort. Clear to auscultation bilaterally. No wheezes. No crackles. Abdomen: Soft. Non-tender. Non-distended. No masses or abdominal hernia. Msk: No digital cyanosis. Normal strength and tone in all 4 limbs. Skin: Warm and dry, no rashes. Necrotic tissue with odorous discharge on right great toe; exudative tissue advancing from the toenail. Neuro: Alert. No facial droop or slurred speech. Extra-ocular movements intact. Sensation intact to soft touch in all 4 limbs. Psych: Appropriate mood. Full affect. Oriented to person, place, time, and situation. laboratory and microbiology Laboratory Tests 09/17/24 07:30 Test 09/17/24 07:30 Range/Units Serum Glucose 118 H 74-106 mg/dL Problem List/Assessment/Plan Problems(with codes): (1) Diabetic foot infection (2) Osteomyelitis of toe (3) Cellulitis and abscess of foot (4) Necrotizing fasciitis (5) Cellulitis Problem List/Assessment/Plan ID Problem List: - Necrotizing infection of right great toe - Osteomyelitis of right distal phalanx - Poorly controlled diabetes mellitus (A1C 8.6) - Diabetic nephropathy - Smoking - Alcohol use - Drug use Assessment This is a 29 y.o. male with a past medical history of poorly controlled diabetes mellitus, diabetic nephropathy, smoking, alcohol use, and drug use, who presents with necrotizing infection and osteomyelitis of the right great toe. The patient has had a diabetic foot wound since May of last year, which has worsened over the last several days with the development of acute necrosis. He denies fevers or chills but reports pain. Imaging Studies: - X-ray of the right foot showed soft tissue gas in the plantar tissues of the first distal phalanx, consistent with osteomyelitis. - Soft tissue swelling and cellulitis particularly about the right great toe and dorsum of the foot. - Edema in intrinsic muscles of the foot may reflect myositis or denervation. The patient underwent debridement on 09/14/2024, with an incision made to the right great hallux deep into the level of abscess and bone. Pus and chronic tissue were drained. Operative cultures are pending. Blood cultures are no growth to date. 09/15: Patient is growing coagnegative staph , Provella buchea and gram negative rods on culture 09/16: whitecount is 10.5 09/17: S/P debridement of right foot , underwent debridement of right great toe and vancomycin powder was added to the incision and a rotational flap was created to close to wound Plan: - Continue Flagyl - Continue vancomycin for 6 weeks IV - Continue ceftriaxone 2g daily 6 weeks IV - In addition to oral Flagyl 500 mg 3x a day for 6 weeks - monitor patient clinically due to undergoing additional surgery - Follow up on operative culture results. - Anticipate need for six weeks of IV antibiotics; recommend PICC line placement. - Patient may require multiple surgical debridements over the next several days to address the acute necrotizing infection. - Monitor blood sugars closely; aim to keep blood glucose under 180 mg/dL. Adjust insulin regimen as needed. - Recommend ongoing wound care; patient may ultimately need a wound VAC. Defer to general surgery for management of postoperative wound and wound care. - Encourage smoking cessation, limit alcohol use, and cessation of drug use. - Follow up on blood cultures. Isolation Precautions: Standard Plan discussed with: RON Loyd MD Sep 17, 2024 21:56
[2024-09-17] MEDS: SODIUM CHLOR 0.9% PF (SALINE LOCK) 10ML VIAL/SYR IV SCH (22:48)
[2024-09-18 05:00] VITALS: BP 117/75; PULSE 75; RESP 20; TEMP 97.7; O2SAT 96
[2024-09-18 06:53] LABS: Basophils # (auto) 0 10 ^3/uL (0-0.2); Basophils % (auto) 0.5 % (0.0-2.0); Eosinophils # (auto) 0.3 10 ^3/uL (0-0.8); Eosinophils % (auto) 3.5 % (0.0-7.0); Hematocrit 41.8 % (41.0-53.0); Hemoglobin 13.9 g/dL (13.5-17.5); Lymphocytes # (auto) 2.9 10 ^3/uL (0.4-5.4); Lymphocytes % (auto) 29.6 % (10.0-50.0); Mean Corpuscular Hgb Conc. 33.4 g/dL (32.0-36.0); Mean Corpuscular Volume 80.9 fL (80.0-100.0); Monocytes # (auto) 0.9 10 ^3/uL (0-1.3); Monocytes % (auto) 9.4 % (0.0-12.0); Neutrophils # (auto) 5.6 10 ^3/uL (1.6-8.6); Nucleated Red Blood Cells % 0.1 %; Platelet Count (auto) 331 10^3/uL (140-450); Red Blood Cells 5.16 10^6/uL (4.5-5.90); Red Cell Distribution Width 13.6 % (11.8-14.3); White Blood Cell 9.9 10^3/uL (4.4-10.8)
[2024-09-18 08:00] VITALS: PULSE 77; PULSE 82; RESP 16
[2024-09-18 09:00] VITALS: BP 100/62; PULSE 82; RESP 16; TEMP 97.7; O2SAT 97
[2024-09-18] MEDS ORDERED: METR-344 PO (20:29)
--- NOTE | 2024-09-18 20:35 | DVHPN2 ---
Consult Progress Note Date Seen: Sep 18, 2024 Subjective Patient reports: Other (has slight bloody drainage from operative debridement site , theres a surgical flap thats clean ) Objective vital signs Vital Sign Date Time Temp Pulse Resp B/P (MAP) Pulse Ox O2 Delivery O2 Flow Rate FiO2 09/18/24 09:00 97.7 82 16 100/62 (75) 97 97.7 09/18/24 08:00 Room Air* 0 21 Total Intake and Output 09/17/24 09/17/24 09/18/24 15:00 23:00 07:00 Intake Total 2675 ml 250 ml 650 ml Output Total 800 ml 800 ml Balance 2675 ml -550 ml -150 ml medications Physical Exam: General: NAD Neck: Supple. No masses. HEENT: PERRL. Normal lids and conjunctiva. Moist mucous membranes. Oropharynx without lesions, exudates or excessive erythema. Normal appearance of the external aspects of the nose and ears. Heart: Regular rhythm, normal rate. No murmur. No lower extremity edema. Lungs: Normal respiratory effort. Clear to auscultation bilaterally. No wheezes. No crackles. Abdomen: Soft. Non-tender. Non-distended. No masses or abdominal hernia. Msk: No digital cyanosis. Normal strength and tone in all 4 limbs. Skin: Warm and dry, no rashes. Necrotic tissue with odorous discharge on right great toe; exudative tissue advancing from the toenail. Neuro: Alert. No facial droop or slurred speech. Extra-ocular movements intact. Sensation intact to soft touch in all 4 limbs. Psych: Appropriate mood. Full affect. Oriented to person, place, time, and situation. laboratory and microbiology Laboratory Tests 09/18/24 06:10 09/17/24 07:30 Test 09/17/24 07:30 Range/Units Serum Glucose 118 H 74-106 mg/dL Problem List/Assessment/Plan Problems(with codes): (1) Diabetic foot infection (2) Osteomyelitis of toe (3) Cellulitis and abscess of foot (4) Necrotizing fasciitis (5) Cellulitis Problem List/Assessment/Plan ID Problem List: - Necrotizing infection of right great toe - Osteomyelitis of right distal phalanx - Poorly controlled diabetes mellitus (A1C 8.6) - Diabetic nephropathy - Smoking - Alcohol use - Drug use Assessment This is a 29 y.o. male with a past medical history of poorly controlled diabetes mellitus, diabetic nephropathy, smoking, alcohol use, and drug use, who presents with necrotizing infection and osteomyelitis of the right great toe. The patient has had a diabetic foot wound since May of last year, which has worsened over the last several days with the development of acute necrosis. He denies fevers or chills but reports pain. Imaging Studies: - X-ray of the right foot showed soft tissue gas in the plantar tissues of the first distal phalanx, consistent with osteomyelitis. - Soft tissue swelling and cellulitis particularly about the right great toe and dorsum of the foot. - Edema in intrinsic muscles of the foot may reflect myositis or denervation. The patient underwent debridement on 09/14/2024, with an incision made to the right great hallux deep into the level of abscess and bone. Pus and chronic tissue were drained. Operative cultures are pending. Blood cultures are no growth to date. 09/15: Patient is growing coagnegative staph , Provella buchea and gram negative rods on culture 09/16: whitecount is 10.5 09/17: S/P debridement of right foot , underwent debridement of right great toe and vancomycin powder was added to the incision and a rotational flap was created to close to wound 09/18: whitecount is 9.9 Plan: - Continue Flagyl - Continue vancomycin for 6 weeks IV - Continue ceftriaxone 2g daily 6 weeks IV - In addition to oral Flagyl 500 mg 3x a day for 6 weeks - monitor patient clinically due to undergoing additional surgery - Follow up on operative culture results. - Anticipate need for six weeks of IV antibiotics; recommend PICC line placement. - Patient may require multiple surgical debridements over the next several days to address the acute necrotizing infection. - Monitor blood sugars closely; aim to keep blood glucose under 180 mg/dL. Adjust insulin regimen as needed. - Recommend ongoing wound care; patient may ultimately need a wound VAC. Defer to general surgery for management of postoperative wound and wound care. - Encourage smoking cessation, limit alcohol use, and cessation of drug use. - Follow up on blood cultures. Isolation Precautions: Standard Plan discussed with: RON Loyd MD Sep 18, 2024 20:35
== END 2024-09-18 12:30 | disposition home health service (06) | DRG 344 ==
LOC: ER 20:50 → OVERFLOW 23:06 → EAST 09-14 15:08 → TELE-EAST 09-15 07:33
PROVIDERS: ADMIT Hospitalist; ATTEND Hospitalist
PROC: 0Q9Q0ZX Drainage of Right Toe Phalanx, Open Approach, Diagnostic (ICD-10-PCS; 2024-09-14)
PROC: 0Y9M0ZZ Drainage of Right Foot, Open Approach (ICD-10-PCS; principal; 2024-09-14 13:00)
PROC: 0Y9M0ZZ Drainage of Right Foot, Open Approach (ICD-10-PCS; 2024-09-17)
PROC: 02HV33Z Insertion of Infusion Device into Superior Vena Cava, Percutaneous Approach (ICD-10-PCS; 2024-09-17)
PROC: B548ZZA Ultrasonography of Superior Vena Cava, Guidance (ICD-10-PCS; 2024-09-17)
DX: E11.69 Type 2 diabetes mellitus with other specified complication (principal); M86.8X7 Other osteomyelitis, ankle and foot; E11.52 Type 2 diabetes mellitus with diabetic peripheral angiopathy with gangrene; A48.0 Gas gangrene; L03.115 Cellulitis of right lower limb; E11.21 Type 2 diabetes mellitus with diabetic nephropathy; E11.621 Type 2 diabetes mellitus with foot ulcer; L02.611 Cutaneous abscess of right foot; L03.031 Cellulitis of right toe; L97.519 Non-pressure chronic ulcer of other part of right foot with unspecified severity; E11.65 Type 2 diabetes mellitus with hyperglycemia; F17.200 Nicotine dependence, unspecified, uncomplicated; Z83.3 Family history of diabetes mellitus
CPT/HCPCS: 36415; 36569; 73630; 73718; 80048; 80202; 82565; 82962; 83036; 83605; 85025; 85610; 85730; 86850; 86900; 86901; 87040; 87070; 87075; 87076; 87205; 96365; 96375; 99291; G0378; J1815; J2250; J2405; J2543; J2704; J3490

== ENCOUNTER 2024-10-27 09:45 | Emergency (ER) | payer MEDICAID ==
[~2024-10-27] VITALS: Ht 172.7 cm; Wt 96.2 kg
[~2024-10-27 09:45] MED LIST: IBUP-1454 PO; METF-372 PO; METR-344 PO
[2024-10-27 10:41] VITALS: BP 146/96; PULSE 114; RESP 18; TEMP 97.2; O2SAT 95
--- NOTE | 2024-10-27 10:47 | ED.PDOC ---
History of Present Illness HPI Comments A 29 YEAR OLD MALE PRESENTS TO THE ED WITH COMPLAINT OF SUTURE REMOVAL. PATIENT STATES HE HAD SUTURES PLACED ON HIS RIGHT GREAT TOE ABOUT 1 MONTH AGO AND IS HERE IN THE ED TODAY TO HAVE THEM REMOVED. PATIENT DENIES FEVER, CHILLS, SHORTNESS OF BREATH, CHEST PAIN, ABDOMINAL PAIN, NAUSEA, VOMITING, HEADACHE, OR OTHER COMPLAINTS. NO OTHER SYMPTOMS OR MODIFYING FACTORS AT THIS TIME. PATIENT IS ALERT, ORIENTED X 4, AND HAS STEADY GAIT. Chief Complaint: Suture Removal Time Seen by MD: 10:05 Reviewed Notes: Nurses Notes, Medications, Allergies Allergies: Coded Allergies: NO KNOWN ALLERGIES (Unverified , 09/13/24) Home Meds Active Scripts Metronidazole (Flagyl) 500 Mg Tab, 1 TAB PO TID for 42 Days, #126 TAB Prov:RON HAHN MD 09/18/24 Ibuprofen (Ibuprofen) 600 Mg Tab, 1 TAB PO Q4HPRN PRN, #20 TAB Prov:YRIS COREAS MD 09/17/24 Reported Medications Metformin Hydrochloride (Metformin Hcl) 1,000 Mg Tab, 500 MG PO BID 09/14/24 Information Source: Patient Mode of Arrival: Ambulatory Severity: None Timing: Weeks Duration: Since onset Prehospital treatment: None Medication Refill: For: Other (ENCOUNTER FOR SUTURE REMOVAL) Past Medical History PAST MEDICAL HISTORY: DM Surgical History: Denies all surgeries Family History Family History: Reviewed,noncontributory to illness Social History Smoker: Non-Smoker Alcohol: Denies ETOH Use Drugs: Denies Drug Use Lives In: Home Constitutional: denies: chills, diaphoresis, fatigue, fever, malaise, sweats, weakness, others EENTM: denies: blurred vision, double vision, ear bleeding, ear discharge, ear drainage, ear pain, ear ringing, eye pain, eye redness, hearing loss, mouth pain, mouth swelling, nasal discharge, nose bleeding, nose congestion, nose pain, photophobia, tearing, throat pain, throat swelling, voice changes, others Respiratory: denies: cough, hemoptysis, orthopnea, SOB at rest, shortness of breath, SOB with excertion, stridor, wheezing, others Cardiovascular: denies: chest pain, dizzy spells, diaphoresis, Dyspnea on exertion, edema, irregular heart beat, left arm pain, lightheadedness, palpitations, PND, syncope, others Gastrointestinal: denies: abdomen distended, abdominal pain, blood streaked bowels, constipated, diarrhea, dysphagia, difficulty swallowing, hematemesis, melena, nausea, poor appetite, poor fluid intake, rectal bleeding, rectal pain, vomiting, others Genitourinary: denies: burning, dysuria, flank pain, frequency, hematuria, incontinence, penile discharge, penile sore, pain, testicle pain, testicle swelling, urgency, others Neurological: denies: dizziness, fainting, headache, left sided numbness, left sided weakness, numbness, paresthesia, pre-existing deficit, right sided numbness, right sided weakness, seizure, speech problems, tingling, tremors, weakness, others Musculoskeletal: denies: back pain, gout, joint pain, joint swelling, muscle pain, muscle stiffness, neck pain, others Integumetry: denies: bruises, change in color, change in hair/nails, dryness, laceration, lesions, lumps, rash, wounds, others Allergic/Immunocompromised: denies: Difficulty Healing, Frequent Infections, Hives, Itching, others Hematologic/Lymphatic: denies: anemia, blood clots, easy bleeding, easy bruising, swollen glands, others Endocrine: denies: excessive hunger, excessive sweating, excessive thirst, excessive urination, flushing, intolerance to cold, intolerance to heat, une xplained weight gain, unexplained weight loss, others Psychiatric: denies: anxiety, bipolar disorder, depression, hopeless, panic disorder, schizophrenia, sleepless, suicidal, others All Other Systems: Reviewed and Negative Physical Exam General Appearance: No Apparent Distress, Normal HEENT: Normal ENT Inspection, PERRL/EOMI, Pharynx Normal, TMs Normal Neck: Full Range of Motion, Non-Tender, Normal, Normal Inspection Respiratory: Chest Non-Tender, Lungs Clear, No Accessory Muscle Use, No Re spiratory Distress, Normal Breath Sounds Cardiovascular: No Edema, No JVD, No Murmur, No Gallop, Normal Peripheral Pulses, Regular Rate/Rhythm Breast Exam: Deferred Gastrointestinal: No Organomegaly, Non Tender, No Pulsatile Mass, Normal Bowel Sounds, Soft Genitalia: Deferred Pelvic: Deferred Rectal: Deferred Extremities: No calf tenderness, Normal capillary refill, Normal inspection, Normal range of motion, Non-tender, No pedal edema Musculoskeletal : Apperance: Normal Neurologic: Alert, director emergency department II-XII nml as Tested, No Motor Deficits, Normal Affect, Normal Mood, No Sensory Deficits Cerebellar Function: Normal Reflexes: Normal Skin: Dry, Lacerations (RIGHT GREAT TOE REPAIRED, HEALED, NO INFECTION SIGNS. ), Normal Color, Warm Peripheral Pulses: 2+ carotid (R), 2+ carotid (L), 2+ dorsalis pedis (R), 2+ dorsalis pedis (L) Lymphatic: No Adenopathy Was a procedure done? Was a procedure done?: No Differential Dx Considerations may include: ENCOUNTER FOR SUTURE REMOVAL, WOUND RECHECK, WOUND INFECTION X-Ray, Labs, Meds, VS Vital Signs Date Time Temp Pulse Resp B/P (MAP) Pulse Ox O2 Delivery O2 Flow Rate FiO2 10/27/24 10:41 114 18 95 Room Air 10/27/24 10:41 97.2 114 18 146/96 (113) 95 97.2 10/27/24 10:10 97.2 114 18 146/96 (113) 95 97.2 X-Ray, Labs, Meds, VS Comment EXTERNAL MEDICAL RECORDS REVIEWED: [NONE] INDEPENDENT HISTORIANS: [NONE] SOCIAL DETERMINANTS OF HEALTH: [NONE] LABS ORDERED: NONE REVIEWED AND INTERPRETED RESULTS: NONE IMAGING ORDERED: NONE TREATMENTS ORDERED: NONE PROCEDURES PERFORMED: NONE CRITICAL CARE TIME: NONE I HAVE DISCUSSED THE PATIENT WITH THE ATTENDING PHYSICIAN DR. REYNOSO AND HE AGREES WITH THE PATIENT'S PLAN OF CARE AND DISPOSITION. BASED ON HISTORY OF PRESENT ILLNESS, AND PHYSICAL EXAM, PATIENT WILL BE DISCHARGED HOME. SHARED DECISION MAKING: PATIENT INSTRUCTED TO FOLLOW UP WITH PRIMARY CARE PROVIDER IN 1-2 DAYS FOR RE-EVALUATION OF SYMPTOMS. PATIENT VERBALIZES UNDERSTANDING TO RETURN TO ED FOR NEW OR WORSENING SYMPTOMS OR IF FOLLOW UP WITH PCP CANNOT BE OBTAINED. PATIENT FEELS COMFORTABLE GOING HOME AT THIS TIME. ALL QUESTIONS ADDRESSED AT TIME OF DISCHARGE. Time of 1ST Reevaluation: 11:00 Reevaluation 1ST: Improved Patient Education/Counseling: Diagnosis, Treatment, Need For Follow Up Family Education/Counseling: Diagnosis, Treatment, Need For Follow Up Medical Screening: No EMC Exist At This Time Departure 1 Departure Time of Disposition: 11:00 Impression: Primary Impression: Encounter for removal of sutures Disposition: 01 HOME / SELF CARE / HOMELESS Condition: Stable Additional Instructions: FOLLOW-UP WITH PCP IN 1 TO 2 DAYS. RETURN TO ED FOR ANY NEW OR WORSENING SYMPTOMS. Discharged With: Self Critical Care Note Critical Care Time?: No Stability Stability form required: No I personally scribed for BRONWYN MORGAN ([email or web address]) on 10/27/24 at 10:47. Electronically submitted by Manav Edwards ([email or web address]). BRONWYN MORGAN Oct 27, 2024 10:47
== END 2024-10-27 10:54 | disposition home or self-care (01) ==
LOC: ER 09:45
DX: S91.111D Laceration without foreign body of right great toe without damage to nail, subsequent encounter (principal); E11.9 Type 2 diabetes mellitus without complications; Z79.84 Long term (current) use of oral hypoglycemic drugs; X58.XXXD Exposure to other specified factors, subsequent encounter